=== PATIENT | male | born 1950 | race Caucasian/White ===

== ENCOUNTER 2021-02-24 09:00 | Outpatient (RCR) | payer MEDICARE, OTHER, SELFPAY ==
[2020-12-07 15:37] VITALS: BP 122/64; PULSE 80; RESP 18; TEMP 36; O2SAT 97
[2020-12-07 15:41] VITALS: PULSE 80
--- NOTE | 2020-12-20 07:46 | PCCPR ---
Absent-sinus infection. hopes to see MD today/get script and return Sunday.
--- NOTE | 2020-12-29 09:35 | PCCPR ---
Patient called and stated he won't be attending class today due to a sore knee.
== END 2021-02-24 12:32 | disposition home or self-care (01) ==
LOC: ANHCPREHAB 09:00
PROVIDERS: PCP Family Medicine
DX: Z95.5 Presence of coronary angioplasty implant and graft (principal)
CPT/HCPCS: 93798

== ENCOUNTER 2025-06-25 13:54 | Outpatient (CLI) | payer MEDICARE, OTHER, SELFPAY ==
--- OUTSIDE RECORDS SUMMARY | 2025-06-25 10:15 | XMS_ITS | Encounter Summary ---
Author Organization [facility] Healthcare Address [address] [place] [address] Care Team Providers Care Pest Management Supervisor Name Role Phone Stanton Montoya MD Primary Care Provider Livan Hough MD Unavailable [phone] Robert Jacinto MD Unavailable [phone] Arnav Mckeon MD Unavailable [phone] Reason for Referral * Cardiology (Routine) - Authorized Specialty Diagnoses / Procedures Referred By Contac t Referred To Contact Diagnoses Coronary artery disease involving capitan grande band coronary artery of capitan grande band heart without angina pectoris Procedures Transthoracic Echo (TTE) Complete W Doppler/CF Sreekanth Triana MD [address] [place] [address] Phone: tel: fax: [facility] [address] [place] [address] Referral ID Status Reason Start Date Expiration Date V isits Requested Visits Authorized [id number] Authorized 06/25/2025 07/25/2026 1 1 Reason for Visit * Reason Comments Coronary Artery Disease 1 year f/u Encounter Details Date Type Department Care Team (Latest Contact Info) Description 06/25/2025 10:15 AM CDT Office Visit [facility] Medical Group Cardiology [address] [facility] [place] [address] Sreekanth Triana MD [address] [place] [address] Coronary artery disease involving capitan grande band coronary artery of capitan grande band heart without angina pectoris (Primary Dx); Mixed hyperlipidemia; Primary hypertension; Venous insufficiency Social History Tobacco Use Types Packs/Day Years Used Date Smoking Tobacco: Never Passive Smoke Exposure: Never Smokeless Tobacco: Never Tobacco Cessation:Counseling Given: Not Answered Alcohol Use Standard Drinks/Week Comments Not Currently 0 (1 standard drink = 0.6 oz pur e alcohol) AUDIT-C Answer Date Recorded Q1: How often do you have a drink containing alc ohol? Never 03/12/2025 Average Number of Drinks Not on file 025 Frequency of Binge Drinking Not on file 03/01 Personal Safety Answer Date Recorded Have you ever been in or are you currently in a harmful physical or emotional relationship or is someone making you feel afraid or unsafe? Denies 03/12/2025 Education Answer Date Recorded What is the highest level of school you have completed or the highest degree you have received? 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 [facility] Card[facility] [address], [place] [address] Cardiology Electrophysiology Monse Serrato, MD Jovani Schneider, MD Colby Obando, MD Rylan Carrillo, MD Livan Martinez, MD Billy Acuna, MD Harshil Duran, MD Phill Adamson, MD Zbigniew Callaway, MD Yessenia Gibbs, STORE PROTECTION SPECIALIST Angel Eagle, MD Joseline Choi, STORE PROTECTION SPECIALIST Chester Rico, MD Yamila Pizarro, [facility] Sreekanth Triana, MD Maciej Marinelli, MD Jovani Ocampo, MD Sincere Mariscal, MD Flaquita Portillo, STORE PROTECTION SPECIALIST Livan Gilliland, NURYS Ramirez, NURYS Moreno, STORE PROTECTION SPECIALIST Patient Name: Weston Mor Fernandes Provider: Sreekanth Triana MD : 1950 Date of Service: 06/25/2025 Referring: Lindsay CHIEF COMPLAINT: Coronary Artery Disease (1 year f/u) HISTORY OF PRESENT ILLNESS: 74 y.o. male with a history of rectal carcinoma, hypertension, hyperlipidemia, diabetes mellitus and CAD s/p PCI here for annual follow-up. Cardiac catheterization November 10, 2020 which revealed normal left main, 30% proximal LAD, 99% distal LAD, trivial left circumflex, trivial RCA status post PCI SHARAD x1 LAD. 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 He denies cardiac complaints. He does note some swelling in his feet, particularly the left which gets worse as the day progresses. His primary care physician therefore stopped his valsartan Current Outpatient Medications: aspirin 81 mg enteric coated tablet, Take 1 tablet (81 mg total) by mouth daily, Disp: 90 tablet, Rfl: 3 atorvastatin (LIPITOR) 40 mg tablet, Take 1 tablet (40 mg total) by mouth daily, Disp: 90 tablet, Rfl: 3 FreeStyle [place] Lite kit, , Disp: , Rfl: FreeStyle Lite Strips strip, , Disp: , Rfl: Jardiance 25 mg tablet, , Disp: , Rfl: omeprazole (PriLOSEC) 40 mg capsule, , Disp: , Rfl: semaglutide 0.25 mg or 0.5 mg (2 mg/3 mL) pen injector injection, , Disp: , Rfl: Review of Systems Constitutional: Negative for chills, diaphoresis, fever and malaise/fatigue. Eyes: Negative for visual disturbance. Cardiovascular: Positive for leg swelling. Negative for chest pain, claudication, dyspnea on exertion, orthopnea, palpitations and paroxysmal nocturnal dyspnea. Respiratory: Negative for cough, shortness of breath and wheezing. Endocrine: Negative for cold intolerance and heat intolerance. Hematologic/Lymphatic: Negative for bleeding problem. Does not bruise/bleed easily. Skin: Negative for rash. Musculoskeletal: Negative for muscle weakness. Gastrointestinal: Negative for abdominal pain, change in bowel habit, heartburn, nausea and vomiting. Genitourinary: Negative for bladder incontinence and dysuria. Neurological: Negative for dizziness, focal weakness, headaches and weakness. Psychiatric/Behavioral: Negative for depression and suicidal ideas. PHYSICAL EXAM: BP 118/64 (BP Location: Left arm, Patient Position: Sitting) Pulse 62 Ht 188 cm (6' 2) Wt 110.7 kg (244 lb) SpO2 96% BMI 31.33 kg/m?? Body mass index is 31.33 kg/m??. General: Well appearing and in no distress Respiratory: Clear to ausculation bilaterally; no wheezing/rales/rhonchi; respirations non-labored,good effort and excursion Cardiovascular: RRR,normal PMI, normal S1 and S2. No S3 or S4. No murmers or rubs. Carotid upstrokes brisk bilaterally and without bruits Gastrointestinal: soft, non-tender abdomen, no hepatic congestion, no abnormal aortic pulsation Extremities: warm and well perfused with no cyanosis, clubbing, or edema Pulses: intact and symmetric Musculoskeletal: no obvious joint deformities, normal gait, able to excercise Skin: no obvious rash or bruising Psychiatric: normal mood and affect Neurologic: awake/alert, no focal deficits Procedures ASSESSMENT & PLAN: Diagnoses and all orders for this visit: Coronary artery disease involving capitan grande band coronary artery of capitan grande band heart without angina pectoris (Primary) - Transthoracic Echo (TTE) Complete W Doppler/CF; Future -stable without anginal symptoms. Continue aspirin 81 mg daily. We will repeat an echo next year Mixed hyperlipidemia -well controlled. Continue atorvastatin at current dose Primary hypertension -currently valsartan has been stopped. Advised him to continue to keep a blood pressure log and we can reassess whether we need to start a new agent Venous insufficiency -foot swelling consistent with venous insufficiency. Advised compression stockings. He will continue to monitor Sreekanth Triana MD, [facility] documented in this encounter Plan of Treatment Scheduled Orders Name Type Priority Associated Diagnoses Order Schedule Transthoracic Echo (TTE) Complete W Doppler/CF Echocardiography Routine Coronary artery disease involving capitan grande band coronary artery of capitan grande band heart without angina pectoris Expected: 06/25/2026, Expires: 12/23/2026 documented as of this encounter Visit Diagnoses Diagnosis Coronary artery disease involving capitan grande band coronary artery of capitan grande band heart without angina pectoris- Primary Mixed hyperlipidemia Primary hypertension Unspecified essential hypertension Venous insufficiency Unspecified venous (peripheral) insufficiency documented in this encounter Discontinued Medications Medication Sig Discontinue Reason Start Date End Da te valsartan (DIOVAN) 80 mg tablet Take 1 tablet (80 mg total) by mouth daily Therapy completed 06/25/2025 documented as of this encounter Care Teams Pest Management Supervisor Relationship Specialty Start Date End Date Stanton Montoya MD [address] [place] [address] PCP - General Family Medicine 12/13/18 Livan Hough MD [address] [place] [address] Radiation Oncologist Radiation Oncology 01/10/19 Robert Jacinto MD [address] [place] [address] Surgeon Colon and Rectal Surgery 01/10/19 Arnav Mckeon MD [address] [facility], [address] [place] [address] Medical Oncology 02/13/24 documented as of this encounter
[2025-06-25 14:41] LABS: Hematocrit 41.0 % (42.0-52.0); Hemoglobin 13.7 g/dL (14.0-18.0); Mean Corpuscular HGB Conc 33.4 g/dl (32-36); Mean Corpuscular Hemoglobin 29.9 pg (26-34); Mean Corpuscular Volume 89.5 fl (80-100); Platelet Count Result 174 k/mm3 (150-375); Red Blood Count 4.58 M/mm3 (4.6-6.20); White Blood Count 6.1 K/mm3 (4.5-10.0)
[2025-06-25 14:42] LABS: Add Urine Microscopic? NO; Appearance Urine Clear (Clear); Glucose Urine UA 3+ mg/dL (Negative); Leukocyte Esterase Ur Negative LEU/UL (Negative); Nitrate Urine Negative (Negative); Specific Grav Ur 1.028 (1.001-1.035)
[2025-06-25 14:52] LABS: Cholesterol 138 mg/dL (0-200); HDL Direct 41 mg/dL; Triglycerides 155 mg/dL (<150)
[2025-06-25 15:28] LABS: Thyroid Stimulating Hormone 4.030 uIU/mL (0.465-4.680)
[2025-06-25 15:35] LABS: MALB Creatinine Ratio 5.9 mg/g (0-30)
--- OUTSIDE RECORDS SUMMARY | 2025-06-25 16:40 | XMS_ITS | Encounter Summary ---
Author Organization [facility] Address [address] [place] [address] Care Team Providers Care Welder Apprentice Arc Name Role Phone Stanton Montoya MD Primary Care Provider [phone] Encounter Details Date Type Department Care Team (Latest Contact Info) Description 08/14/2023 [employer] Message Enc [facility] Medical Group Multispecialty Care - [address], [address] [place] [address] Leonides Luevano MD [address] [place], [place] [id number] NOTES from Aug Social History Tobacco Use Types Packs/Day Years Used Date Smoking Tobacco: Never Smokeless Tobacco: Never Alcohol Use Standard Drinks/Week Comments Not Currently 0 (1 standard drink = 0.6 oz pur e alcohol) PHQ-2 Answer Date Recorded Patient Health Questionnaire-2 Score 1 08/17/2023 Sex and Gender Information Value Date Recorded Sex Assigned at Not on file Legal Sex Male 11:39 AM CDT Gender Identity Not on file Sexual Orientation Not on file documented as of this encounter Functional Status * Over the past 2 weeks, how often have you been bothered by any of the following problems? Question Answer Date of Assessment Author Status Little interest or pleasure in doing things Not at all 08/17/2023 9:31 AM Tasha Glaser, MA Active Feeling down, depressed, or hopeless Several days 08/17/2023 9:31 AM Tasha Glaser MA Active Patient Health Questionnaire-2 Score 1 08/17/2023 9:31 AM Tasha Glaser MA Active * If you checked off any problems on this questionnaire so far, Question Answer Date of Assessment Author Status How difficult have these problems made it for you to do your work, take care of things at home, or get along with other people? Somewhat difficult 08/17/2023 9:31 AM Tasha Glaser MA Active documented as of this encounter Plan of Treatment Not on file documented as of this encounter Visit Diagnoses Not on filedocumented in this encounter Care Teams Welder Apprentice Arc Relationship Specialty Start Date End Date Stanton Montoya MD [address] [place] [address] PCP - General FAMILY PRACTICE 03/23/23 documented as of this encounter
--- OUTSIDE RECORDS SUMMARY | 2025-06-25 16:41 | XMS_ITS | Encounter Summary ---
Author Organization [facility] Address [address] [place] [address] Phone Care Team Providers Care Chopper Gun Operator Name Role Phone Stanton Montoya MD Primary Care Provider Livan Hough MD Unavailable [phone] Robert Jacinto MD Unavailable [phone] Mendy Altamirano MD Unavailable Arnav Mckeon MD Unavailable [phone] Encounter Details Date Type Department Care Team (Latest Contact Info) Description 03/14/2023 Orders Only [facility] Scanning, Provider Social History Tobacco Use Types Packs/Day Years Used Date Smoking Tobacco: Never Smokeless Tobacco: Never Alcohol Use Standard Drinks/Week Comments Not Currently 0 (1 standard drink = 0.6 oz pur e alcohol) AUDIT-C Answer Date Recorded Q1: How often do you have a drink containing alc ohol? Never 01/13/2021 Average Number of Drinks Not on file 021 Q3: How often do you have si x or more drinks on one occasion? Never 01/13/2021 Personal Safety Answer Date Recorded Have you ever been in or are you currently in a harmful physical or emotional relationship or is someone making you feel afraid or unsafe? Denies 02/14/2023 Education Answer Date Recorded What is the highest level of school you have completed or the highest degree you have received? 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 Not on file Not on file documented as of this encounter Plan of Treatment Not on file documented as of this encounter Procedures Procedure Name Priority Date/Time Associated Diagnosis Comments SCAN - PATHOLOGY 03/14/2023 documented in this encounter Results * SCAN - PATHOLOGY (03/14/2023) us Provider Scanning Final Result documented in this encounter Visit Diagnoses Not on filedocumented in this encounter Care Teams Chopper Gun Operator Relationship Specialty Start Date End Date Stanton Montoya MD [address] [place] [address] [address] PCP - General Family Medicine 12/13/18 Livan Hough MD [address] [facility] [address] [address] Radiation Oncologist Radiation Oncology 01/10/19 Robert Jacinto MD [address] [facility] [address] [address] Surgeon Colon and Rectal Surgery 01/10/19 Mendy Altamirano MD [address] [facility] [address] [address] Medical Oncologist/Entry Writer Medical Oncology 09/02/19 02/12/24 Arnav Mckeon MD [address] [facility] MEDICAL [facility]Y, [facility] [address] [place] [address] Medical Oncology 02/13/24 documented as of this encounter
--- OUTSIDE RECORDS SUMMARY | 2025-06-25 16:41 | XMS_ITS | Encounter Summary ---
Author Organization [facility] Address [address] [place] [address] Care Team Providers Care Production Coordinator Name Role Phone Stanton Montoya MD Primary Care Provider [phone] Encounter Details Date Type Department Care Team (Late st Contact Info) Description 11/22/2023 Medication Management [facility] Medical Group [facility] [id number] [place] [address] Harshil Abraham, DPLianna [address] [place] [address] Social History Tobacco Use Types Packs/Day Years Used Date Smoking Tobacco: Never Passive Smoke Exposure: Never Smokeless Tobacco: Never Comments:Never Smoked Alcohol Use Standard Drinks/Week Comments Never 0 (1 standard drink = 0.6 oz pur e alcohol) none PHQ-2 Answer Date Recorded Patient Health Questionnaire-2 [...] on filedocumented in this encounter Care Teams Production Coordinator Relationship Specialty Start Date End Date Stanton Montoya MD [address] [facility] [address] [place] [address] PCP - General FAMILY PRACTICE 03/23/23 documented as of this encounter
--- OUTSIDE RECORDS SUMMARY | 2025-06-25 16:41 | XMS_ITS | Encounter Summary ---
Author Organization [facility] Address [address] [place] [address] Phone Care Team Providers Care Southeast Regional Sales Manager Name Role Phone Stanton Montoya MD Primary Care Provider Livan Hough MD Unavailable [phone] Robert Jacinto MD Unavailable [phone] Mendy Altamirano MD Unavailable Arnav Mckeon MD Unavailable [phone] Encounter Details Date Type Department Care Team (Latest Contact Info) Description 06/07/2021 Orders Only [facility] Scanning, Provider [...] more drinks on one occasion? Never 01/13/2021 Education Answer Date Recorded What is the highest level of school you have completed or the highest degree you have received? 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 Not on file Not on file documented as of this encounter Plan of Treatment Not on file documented as of this encounter Procedures Procedure Name Priority Date/Time Associated Diagnosis Comments SCAN - PATHOLOGY 06/07/2021 documented in this encounter Results * SCAN - PATHOLOGY (06/07/2021) Provider Scanning Final Result documented in this encounter Visit Diagnoses Not on filedocumented in this encounter Care Teams Southeast Regional Sales Manager Relationship Specialty Start Date End Date Stanton Montoya MD [address] [place] [address] PCP - General Family Medicine 12/13/18 Livan Hough MD [address] [place] [address] Radiation Oncologist Radiation Oncology 01/10/19 Robert Jacinto MD [address] [place] [address] Surgeon Colon and Rectal Surgery 01/10/19 Mendy Altamirano MD [address] [place] [address] Medical Oncologist/Public Opinion Survey Taker Medical Oncology 09/02/19 02/12/24 Arnav Mckeon MD [address] [facility] MEDICAL ONCOLOGY, [facility] [address] [place] [address] Medical Oncology 02/13/24 documented as of this encounter
--- OUTSIDE RECORDS SUMMARY | 2025-06-25 16:41 | XMS_ITS | Clinical Summary ---
Author Organization [facility] Address [address] [place] [address] Care Team Providers Care Clinical Data Specialist Name Role Phone Stanton Montoya MD Primary Care Provider [phone] Allergies No known active allergies Medications TRULICITY 0.75 MG/0.5ML injection Inject 0.75 mg into the skin once a week. 08/04/2022 Active FREESTYLE LITE test strip 1 strip by Other route. 04/12/2023 Active Lancets (FREESTYLE) lancets 1 each by Other route as needed. 04/12/2023 Active atorvastatin (LIPITOR) 40 MG tablet Take 1 tablet (40 mg total) by mouth nightly at bedtime. Active amitriptyline (ELAVIL) 25 MG tabletIndicatio ns:Drug-induced peripheral neuropathy (HHS/HCC) Take 1 tablet (25 mg total) by mouth nightly at bedtime. 30 tablet 11/22/2023 Active Active Problems Problem Noted Date Diagnosed Date Fatty liver 08/22/2023 Diabetes type 2, controlled (CMS/HCC HHS/HCC) History of rectal cancer 09/15/2021 Coronary artery disease invo lving [place] coronary artery of [place] heart without angina pectoris 06/21/2021 Mixed hyperlipidemia 06/21/2021 Primary hypertension 06/21/2021 Gilbert's syndrome 04/14/2021 Abnormal cardiovascular stress test 11/05/2020 Overview (09/17/2023): Added automatically from request for surgery [id number] Angina pectoris 11/05/2020 Drug-induced polyneuropathy (HHS/HCC) 11/27/2019 Family History Medical History Relation Comments Cancer Father Hypertension Mother Relation Status Comments Father Mother Social History Tobacco Use Types Packs/Day Years Used Date Smoking Tobacco: Never Passive Smoke Exposure: Never Smokeless Tobacco: Never Tobacco Cessation:Counseling Given: No Comments:Never Smoked Alcohol Use Standard Drinks/Week Comments Never 0 (1 standard drink = 0.6 oz pur e alcohol) none PHQ-2 Answer Date Recorded Patient Health Questionnaire-2 Score 1 08/17/2023 Sex and Gender Information Value Date Recorded Sex Assigned at Not on file Legal Sex Male 11:39 AM CDT Gender Identity Not on file Sexual Orientation Not on file Last Filed Vital Signs Vital Sign Reading Time Taken Comments Blood Pressure 139/82 12/05/2023 2:45 PM MACHINE FARMWORKER Pulse 70 12/05/2023 2:45 PM MACHINE FARMWORKER Temperature 36.8 C (98.2 F) 09/17/2023 1:08 PM MACHINE FARMWORKER Respiratory Rate 18 08/17/2023 9:14 AM MACHINE FARMWORKER Oxygen Saturation 96% 12/05/2023 2:45 PM MACHINE FARMWORKER Inhaled Oxygen Concentration - - Weight 108.9 kg (240 lb) 12/05/2023 2:45 PM MACHINE FARMWORKER Height 188 cm (6' 2) 09/17/2023 1:08 PM MACHINE FARMWORKER Body Mass Index 30.81 09/17/2023 1:08 PM MACHINE FARMWORKER Plan of Treatment Health Maintenance Due Date Last Done Comments ASCVD LDL 1950 ASCVD Statin 1950 Colorectal Cancer Screening Colonoscopy (10 Years) 1950 Kidney Health Evaluation 1950 Lipid Panel 1950 Diabetes: Retinopathy Eye Exam 1967 Hepatitis C 1967 DTaP, Tdap and Td Vaccines ( 1 - Tdap) 1968 Pneumococcal Vaccine: 50+ Years (1 of 2 - PCV) 1968 Zoster Vaccines (1 of 2) 1999 Annual Medicare Wellness Visit 2014 Hemoglobin A1C 11/04/2023 05/04/2023 RSV Immunization or 60+ Years (1 - 1-dose 75+ series) 2024 PHQ-2 (Physician [place]) 10/01/2024 08/17/2023 COVID-19 Vaccine (3 - 2024-2 6 season) 2025 10/26/2021, 12/04/2020 Meningococcal B Vaccine Aged Out No l onger eligible based on patient's age to complete this topic Meningococcal Vaccine Aged Out No cristo jhony eligible based on patient's age to complete this topic RSV Immunizations Under 20 Months Aged Out No longer eligible b ased on patient's age to complete this topic Procedures Procedure Name Priority Date/Time Associated Diagnosis Comments HEMOGLOBIN, GLYCOSYLATED Routine 05/04/2023 from Last 3 Months or Most Recently Relevant to Health Maintenance Results * HEMOGLOBIN, GLYCOSYLATED (05/04/2023) HGB A1C 6.8 % 05/04/2023 us Default History Genericprovider LABORATORY Final Result from Last 3 Months or Most Recently Relevant to Health Maintenance Insurance MEDICARE [facility] [employer] Care Teams Clinical Data Specialist Relationship Specialty Start Date End Date Stanton Montoya MD [address] [place] [address] PCP - General FAMILY PRACTICE 03/23/23
--- OUTSIDE RECORDS SUMMARY | 2025-06-25 16:41 | XMS_ITS | Encounter Summary ---
Author Organization [facility] Address [address] [place] [address] Phone Care Team Providers Care Drone Pilot Name Role Phone Stanton Montoya MD Primary Care Provider Yariel Chavez MD Unavailable Livan Hough MD Unavailable Robert Jacinto MD Unavailable Mendy Altamirano MD Unavailable Arnav Mckeon MD Unavailable [phone] Encounter Details Date Type Department Care Team (Latest Contact Info) Description 12/25/2018 Orders Only [facility] Scanning, Provider Social History Tobacco Use Types Packs/Day Years Used Date Smoking Tobacco: Never Sex and Gender Information Value Date Recorded Sex Assigned at Not on file Legal Sex Male 5:24 AM COMBINATION TECHNICIAN Gender Identity Male 02/25/2021 5:21 PM CDT Sexual Orientation Straight 02/25/2021 5: 21 PM CDT documented as of this encounter Plan of Treatment Not on file documented as of this encounter Procedures Procedure Name Priority Date/Time Associated Diagnosis Comments SCAN - PATHOLOGY 12/25/2018 documented in this encounter Results * SCAN - PATHOLOGY (12/25/2018) us Provider Scanning Edited Result - Final documented in this encounter Visit Diagnoses Not on filedocumented in this encounter Care Teams Drone Pilot Relationship Specialty Start Date End Date Stanton Montoya MD [address] [place] [address] PCP - General Family Medicine 12/13/18 Yariel Chavez MD [address] [place] [address] Referring Physician Gastroenterology 12/26/18 01/06/21 Livan Hough MD [address] [place] [address] Radiation Oncologist Radiation Oncology 01/10/19 Robert Jacinto MD [address] [place] [address] Surgeon Colon and Rectal Surgery 01/10/19 Mendy Altamirano MD [address] [place] [address] Medical Oncologist/Hematologis t Medical Oncology 09/02/19 02/12/24 Arnav Mckeon MD [address] [facility], [address] [place] [address] Medical Oncology 02/13/24 documented as of this encounter
--- OUTSIDE RECORDS SUMMARY | 2025-06-25 16:41 | XMS_ITS | Encounter Summary ---
Author Organization [facility] Address [address] [place] [address] Phone Care Team Providers Care Wash Tub Machine Operator Name Role Phone Stanton Montoya MD Primary Care Provider Livan Hough MD Unavailable [phone] Robert Jacinto MD Unavailable Arnav Mckeon MD Unavailable [phone] Encounter Details Date Type Department Care Team (Latest Contact Info) Description 08/20/2024 Orders Only [facility] Scanning, Provider Social History Tobacco Use Types Packs/Day Years Used Date Smoking Tobacco: Never Passive Smoke Exposure: Never Smokeless Tobacco: Never Alcohol Use Standard Drinks/Week Comments Not Currently 0 (1 standard drink = 0.6 oz pur e alcohol) AUDIT-C Answer Date Recorded Q1: How often do you have a drink containing alc ohol? Never 01/04/2024 Average Number of Drinks Not on file 024 Frequency of Binge Drinking Not on file 01/2024 Personal Safety Answer Date Recorded Have you ever been in or are you currently in a harmful physical or emotional relationship or is someone making you feel afraid or unsafe? Denies 01/04/2024 Education Answer Date Recorded What is the highest level of school you have completed or the highest degree you have received? 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 Not on file Not on file documented as of this encounter Plan of Treatment Not on file documented as of this encounter Procedures Procedure Name Priority Date/Time Associated Diagnosis Comments SCAN - PATHOLOGY 08/20/2024 documented in this encounter Results * SCAN - PATHOLOGY (08/20/2024) Provider Scanning Final Result documented in this encounter Visit Diagnoses Not on filedocumented in this encounter Care Teams Wash Tub Machine Operator Relationship Specialty Start Date End Date Stanton Montoya MD [address] [place] [address] PCP - General Family Medicine 12/13/18 Livan Hough MD [address] [place] [address] Radiation Oncologist Radiation Oncology 01/10/19 Robert Jacinto MD [address] [place] [address] Surgeon Colon and Rectal Surgery 01/10/19 Arnav Mckeon MD [address] [facility], [facility] [address] [place] [address] Medical Oncology 02/13/24 documented as of this encounter
--- OUTSIDE RECORDS SUMMARY | 2025-06-25 16:41 | XMS_ITS | Clinical Summary ---
Author Organization [facility] [address] [facility] Address [address] [place] [address] Care Team Providers Care Industry Consultant Name Role Phone Unavailable Primary Care Provider Unavailabl e Active Problems Problem Noted Date Diagnosed Date STEPHANIE (obstructive sleep apnea) 04/29/2024 Social History Tobacco Use Types Packs/Day Years Used Date Smoking Tobacco: Never Assessed Sex and Gender Information Value Date Recorded Sex Assigned at Not on file Legal Sex Male 7:58 AM CDT Gender Identity Not on file Sexual Orientation Not on file Plan of Treatment Health Maintenance Due Date Last Done Comments DIABETES ANNUAL FOOT EXAM 1967 DIABETES ANNUAL RETINAL EXAM 1967 DIABETES MICROALBUMIN ANNUAL SCREEN 1967 LDL CHOLESTEROL ANNUAL 1967 DTAP/TDAP/TD VACCINES (1 - Tdap) 1968 PNEUMOCOCCAL VACCINE 50+ YEA RS (1 of 2 - PCV) 1968 FIT-DNA Q 3 years 1994 FIT/FOBT Q 1 year 1994 ZOSTER VACCINE (1 of 2) 1999 DIABETES HBA1C Q 6 MONTHS 11/04/2023 05/04/2023 RSV VACCINE (60+ or ) (1 - 1-dose 75+ series) 2024 INFLUENZA VACCINE (#1) 2025 COVID-19 Vaccine (2 - 2024-2 6 season) 2025 12/04/2020 Flex Sig/CT Colonography Q 5 years 01/13/2026 01/13/2021, 06/10/2020, 08/07/2019 COLORECTAL SCREENING 01/03/2034 01/04/2024, 01/04/2024, 01/13/2021, Additional history exists Colorectal Cancer Screening 01/03/2034 Insurance MEDICARE PART A [employer]
--- OUTSIDE RECORDS SUMMARY | 2025-06-25 16:41 | XMS_ITS | Clinical Summary ---
Author Organization [facility] [address] Address [address] [place] [address] Care Team Providers Care Sub Acute Care Nurse Name Role Phone Stanton Montoya MD Primary Care Provider Livan Hough MD Unavailable [phone] Robert Jacinto MD Unavailable [phone] Arnav Mckeon MD Unavailable [phone] Allergies No known active allergies Medications aspirin 81 mg enteric coated tablet Take 1 tablet (81 mg total) by mouth daily 90 tablet 3 1 Active FreeStyle Lite Strips strip 2 Active atorvastatin (LIPITOR) 40 mg tablet Take 1 tablet (40 mg total) by mouth daily 90 tablet 3 2 06/18/20 99 Active FreeStyle [place] Lite kit 2 Active Jardiance 25 mg tablet 3 Active semaglutide 0.25 mg or 0.5 mg (2 mg/3 mL) pen injector injection 4 Active omeprazole (PriLOSEC) 40 mg capsule 4 Active valsartan (DIOVAN) 80 mg tablet Take 1 tablet (80 mg total) by mouth daily 06/25/20 25 Discontinu ed(Therapy completed) Active Problems Problem Noted Date Diagnosed Date Venous insufficiency 06/25/2025 History of colonic polyps 02/05/2025 Rectal abnormality 08/20/2024 STEPHANIE (obstructive sleep apnea) 06/24/2024 Fatty liver 08/22/2023 History of rectal cancer 09/15/2021 Coronary artery disease invo lving [place] coronary artery of mentasta heart without angina pectoris 06/21/2021 Mixed hyperlipidemia 06/21/2021 Primary hypertension 06/21/2021 Gilbert's syndrome 04/14/2021 Angina pectoris 11/05/2020 Abnormal cardiovascular stress test 11/05/2020 Overview (11/05/2020): Added automatically from request for surgery [id number] Screening for malignant neoplasm 05/20/2020 Overview (05/20/2020): Added automatically from request for surgery [id number] 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 Rectal cancer 12/31/2018 Cancer Staging:Clinical stage from 12/25/2018:Stage IIIB(cT3, cN1b, cM0) - Signed by Chau Nickerson MD on 01/13/2019 Resolved Problems Problem Noted Date Diagnosed Date Resolved Date Pulmonary nodule 04/14/2021 07/13/2021 Depression 05/26/2020 07/13/2021 Rectal pain 03/12/2019 05/26/2020 Other fatigue 02/26/2019 08/20/2024 Encounters Date Type Department Care Team Description 06/25/2025 10:15 AM CDT Office Visit [facility] Cardiology [facility] [address] [id number] Sreekanth Triana MD Coronary artery disease involving mentasta coronary artery of mentasta heart without angina pectoris (Primary Dx); Mixed hyperlipidemia; Primary hypertension; Venous insufficiency from Last 3 Months Immunizations Immunization Administration Dates Next Due [employer]) SARS-CoV-2 Vaccination 12/04/2020 Surgical History Surgery Date Site/Laterality Comments SINUS SURGERY 10/01/2013 - 09/30/2014 FINGER TENDON REPAIR index finger PORT PLACEMENT CHEST >5 YEARS 02/12/2019 N/A CORONARY ANGIOPLASTY WITH ST ENT PLACEMENT 11/10/2020 PORT REMOVAL 02/14/2023 N/A Medical History Medical History Date Comments Sleep apnea Nonalcoholic hepatosteatosis 2019 Liver cysts 12/2018 Depression Rectal cancer (HCC) 11/2018 s/p chemorad iation Hypertension Hyperlipidemia Diabetes mellitus Heart disease 11/2020 Type 2 diabetes mellitus Family History Medical History Relation Name Comments Cancer Father Weston Fernandes Pneumonia Father Weston Fernandes Prostate cancer Father Weston Fernandes Diabetes Mother Virginie Fernandes Heart disease Mother Virginie Fernandes Heart failure Mother Virginie Fernandes Lung cancer with mets to spine Mother's Sister Breast cancer Niece Genetic Disorder Niece Germline BA RD1 mutation from paternal (unrelated) side of family Relation Name Status Comments Brother (Age 20) Father Weston Fernandes (Age 82) Mother Virginie Fernandes (Age 93) Mother's Sister Niece Sister Alive Social History Tobacco Use Types Packs/Day Years [...] on file Legal Sex 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 Gender Identity Male 02/25/2021 5:21 PM CDT Sexual Orientation Straight 02/25/2021 5: 21 PM CDT 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 Not on file Not on file Obstetrics History Last Filed Vital Signs Vital Sign Reading Time Taken Comments Blood Pressure 118/64 06/25/2025 10:25 AM CDT Pulse 62 06/25/2025 10:25 AM CDT Temperature 36.2 C (97.2 F) 03/12/2025 10:58 AM CDT Respiratory Rate 10 03/12/2025 11:40 AM CDT Oxygen Saturation 96% 06/25/2025 10:25 AM CDT Inhaled Oxygen Concentration - - Weight 110.7 kg (244 lb) 06/25/2025 10:25 AM CDT Height 188 cm (6' 2) 06/25/2025 10:25 AM CDT Body Mass Index 31.33 06/25/2025 10:25 AM CDT Plan of Treatment Health Maintenance Due Date Last Done Comments Depression Screening 1950 Hepatitis C Screening 1950 Prostate Cancer Screening-PSA 1950 DTaP/Tdap/Td Vaccine (1 - Tdap) 1960 Hepatitis B Screening 1967 Pneumococcal vaccine 65+ (1 of 2 - PCV) 1968 Zoster Vaccine (1 of 2) 1999 Well Visit 65+ 2014 Covid-19 Vaccine (2 - Jansse n risk series) 01/01/2021 12/04/2020 Influenza Vaccine (#1) 2025 Fall Risk Assessment 03/12/2026 03/12/2025 Colon Cancer Screening-Colonoscopy 03/12/2035 03/12/2025, 01/04/2024, 03/12/2020 Colon Cancer Screening-CT Colonography Discontinued 03/12/2025, 01/04/2024, 01/13/2021, Additional history exists Colon Cancer Screening-DNA Stool Discontinued 03/12/2025, 01/04/2024, 01/13/2021, Additional history exists Colon Cancer Screening-FIT Discontinued 03/12, 01/04/2024, 01/13/2021, Additional history exists Colon Cancer Screening-Sigmoidoscopy Discontinued 03/12/2025, 01/04/2024, 01/13/2021, Additional history exists Medical Devices Implanted Type Area Scanning Manager Device Identifier Shelf Expiration Date Model / Serial / Lot Ang[employer] [id number] Xcela 8fr 1.6mm 1 Lumen Power Injectable Attach Catheter Fill - [id number] Implanted:Qty: 1 on 02/12/2019 at [facility] Catheter [employer] 08/25/2023 [id number] / / [id number] [employer] Isaura [id number] Synergy 3.5mm 24mm 144cm Radiopaque 1 Access Port Inflation Lumen - S0 - [id number] Implanted:Qty: 1 on 11/10/2020 by Sreekanth Triana MD at [facility] Stent [employer] Isaura 07/22/2022 [id number] / 0 / [id number] Description:LAD Procedures Procedure Name Priority Date/Time Associated Diagnosis Comments COLONOSCOPY 03/12/2025 9:51 AM CDT from Last 3 Months or Most Recently Relevant to Health Maintenance Results * Colonoscopy (03/12/2025 9:51 AM CDT) Anatomical Region Laterality Modality Other Narrative Procedure Note Robert Jacinto MD - 03/12/2025 9:51 AM CDT [facility] Patient Name: Weston Fernandes Procedure Date: 03/12/2025 9:51 AM Date of : 1950 Admit Type: Outpatient Age: 74 Gender: Male Attending MD: Robert Jacinto M.D. Room: [facility] ENDOSCOPY ROOM 02 Note Status: Finalized Procedure: Colonoscopy Indications: Last colonoscopy 1 year ago, Personal history of malignant rectal neoplasm Referring MD: Stanton Montoya M.D. Providers: Robert Jacinto M.D. Medicines: Propofol per Anesthesia Complications: No immediate complications. Estimated blood loss:None. Estimated Blood Loss: Estimated blood loss: none. Procedure: Pre-Anesthesia Assessment: - Sedation was administered by an anesthesia professional. General anesthesia was attained. - Immediately prior to administration ofmedications, the patient was re-assessed for adequacy to receive sedatives. The benefits, risks and alternatives of theprocedure and sedation were discussed and informed consentwas obtained. All questions were answered. Please referto the signed informed consent document in the medical record. The scope was passed under direct vision.The [id number] was introduced through the anusand advanced to the the cecum, identified byappendiceal orifice and ileocecal valve. The colonoscopy was technically difficult and complex due tosignificant looping. Successful completion of the procedure was aided by changing the patient to a supine positionand applying abdominal pressure. The quality of thebowel preparation was excellent. The quality of the bowel preparation was evaluated using the BBPS (BostonBowel Preparation Scale) with scores of: Right Colon = 3, Transverse Colon = 3 and Left Colon = 3 (entiremucosa seen well with no residual staining, smallfragments of stool or opaque liquid). The total BBPS score equals 9. The bowel preparation used was SUPREP via split dose instruction. Findings: The entire examined colon appeared normal. Impression: - The entire examined colon is normal. - No specimens collected. Recommendation: - Repeat colonoscopy in 2 years for surveillance. Attending Participation: I was present and participated during the entire procedure, including non-garzon portions. Electronically signed by Dr.Matthew Ophelia M.D. Robert Jacinto M.D. 03/12/2025 10:55:36 AM . Number of Addenda: 0 Note Initiated On: 03/12/2025 9:51 AM Recognized by the [place] [employer] for promoting quality in endoscopy Robert Jacinto MD ENDOSCOPY PROCEDURES Final R esult from Last 3 Months or Most Recently Relevant to Health Maintenance Insurance MEDICARE FOR LIFE MEDICARE FOR LIFE MEDICARE [facility] Address: [address] [address] [place] [address] FOR LIFE Advance Directives For more information, please contact: [phone] * Full Code (Latest Code Status on File) Date Activated Date Inactivated Comments 03/12/2025 9:24 AM 03/12/2025 4:00 PM * Full Code Date Activated Date Inactivated Comments 01/04/2024 12:51 PM 01/04/2024 7:49 PM * Full Code Date Activated Date Inactivated Comments 02/14/2023 7:20 AM 02/15/2023 5:01 AM * Full Code Date Activated Date Inactivated Comments 01/13/2021 10:25 AM 01/13/2021 3:34 PM * Full Code Date Activated Date Inactivated Comments 06/10/2020 8:55 AM 06/10/2020 1:51 PM Care Teams Sub Acute Care Nurse Relationship Specialty Start Date End Date Stanton Montoya MD [address] [facility] [address] [place] [address] PCP - General Family Medicine 12/13/18 Livan Hough MD [address] [facility] [address] [place] [address] Radiation Oncologist Radiation Oncology 01/10/19 Robert Jacinto MD [address] [address] Surgeon Colon and Rectal Surgery 01/10/19 Arnav Mckeon MD [address] [facility], [facility] [address] [place] [address] Medical Oncology 02/13/24
--- OUTSIDE RECORDS SUMMARY | 2025-06-25 16:41 | XMS_ITS | Encounter Summary ---
Author Organization [facility] Address [address] [place] [address] Phone Care Team Providers Care Material Handler Name Role Phone Stanton Montoya MD Primary Care Provider Livan Hough MD Unavailable [phone] Robert Jacinto MD Unavailable [phone] Mendy Altamirano MD Unavailable Arnav Mckeon MD Unavailable [phone] Encounter Details Date Type Department Care Team (Latest Contact Info) Description 02/23/2023 Orders Only [facility] Scanning, Provider [...] on file 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 Gender Identity Male 02/25/2021 5:21 PM CDT Sexual Orientation Straight 02/25/2021 5: 21 PM CDT 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 Not on file Not on file documented as of this encounter Plan of Treatment Not on file documented as of this encounter Procedures Procedure Name Priority Date/Time Associated Diagnosis Comments SCAN - PATHOLOGY 02/23/2023 documented in this encounter Results * SCAN - PATHOLOGY (02/23/2023) us Provider Scanning Final Result documented in this encounter Visit Diagnoses Not on filedocumented in this encounter Care Teams Material Handler Relationship Specialty Start Date End Date Stanton Montoya MD [address] [place] [address] [address] PCP - General Family Medicine 12/13/18 Livan Hough MD [address] [facility] [address] [address] Radiation Oncologist Radiation Oncology 01/10/19 Robert Jacinto MD [address] [facility] [address] [address] Surgeon Colon and Rectal Surgery 01/10/19 Mendy Altamirano MD [address] [facility] [address] [address] Medical Oncologist/Machine Shop Apprentice Medical Oncology 09/02/19 02/12/24 Arnav Mckeon MD [address] [facility], [facility] [address] [place] [address] Medical Oncology 02/13/24 documented as of this encounter
--- OUTSIDE RECORDS SUMMARY | 2025-06-25 16:41 | XMS_ITS ---
Author Organization [facility] [address] Address [address] [place] [address] Care Team Providers Care Residential Recycle Driver Name Role Phone Stanton Montoya MD Primary Care Provider Livan Hough MD Unavailable [phone] Robert Jacinto MD Unavailable [phone] Arnav Mckeon MD Unavailable [phone] Active Problems Problem Noted Date Diagnosed Date Venous insufficiency 06/25/2025 History of colonic polyps 02/05/2025 Rectal abnormality 08/20/2024 STEPHANIE (obstructive sleep apnea) 06/24/2024 Fatty liver 08/22/2023 History of rectal cancer 09/15/2021 Coronary artery disease invo lving [place] coronary artery of [place] heart without angina pectoris 06/21/2021 Mixed hyperlipidemia 06/21/2021 Primary hypertension 06/21/2021 Gilbert's syndrome 04/14/2021 Angina pectoris 11/05/2020 Abnormal cardiovascular stress test 11/05/2020 Overview (11/05/2020): Added automatically from request for surgery [id number] Screening for malignant neoplasm 05/20/2020 Overview (05/20/2020): Added automatically from request for surgery [id number] 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 Rectal cancer 12/31/2018 Cancer Staging:Clinical stage from 12/25/2018:Stage IIIB(cT3, cN1b, cM0) - Signed by Chau Nickerson MD on 01/13/2019 Current Treatment and Therapy Plans No current plan information found. Past Treatment and Therapy Plans Line Care Plan Name Start Date Discontinue Date Treatment Medications Discontinue Reason Plan Provider IV MAINTENANCE THERAPY PLAN & IV MAINTENANCE THERAPY PLAN 02/12/2019 12/11/2023 No medications scheduled. Automatic discontinuation of dormant plans Mendy Altamirano MD Oncology Chemotherapy Treatment Plan Name Start Date Discontinue Date Treatment Medications Discontinue Reason Plan Provider Cycles [id number]: (Fluorouracil / Leucovorin / Oxaliplatin) 14 Day Cycles - GI 9 05/26/2020 fluorouracil (ADRUCIL)fluorou racil (ADRUCIL) infusion - for home infusion (ADRUCIL)leucovo rinleucovorin IVPB in 250 mLoxaliplatin (ELOXATIN)oxalip latin (ELOXATIN) IVPB Therapy Complete Mendy Altamirano MD 11 of 13 cycles started Radiation Treatments * Course C1 RECTUM 2019 01/20/2019 - 01/24/2019 Treatment Period Energy Fraction Dose Fractions Total Dose Plans Planned RECTUM 01/20/2019 - 01/24/2019 500 5 / 2,500 Reference Points Delivered RECTUM 2500 01/20/2019 - 01/24/2019 2,500 Lifetime Dose Tracking * Chemical Lifetime Dose Automatic Entry Manual Entr y Fluoro Time 7.3 minutes 0.3 minutes 7 minutes Air kerma at the reference p oint (Ka,r) 755 mGy 3 mGy 752 mGy DLP 9,779 mGycm 9,779 mGycm 0 mGycm DAP 6,146.56 Gy-cm2 0 Gy-cm2 6,146.56 Gy- cm2 Resolved Problems Problem Noted Date Diagnosed Date Resolved Date Pulmonary nodule 04/14/2021 07/13/2021 Depression 05/26/2020 07/13/2021 Rectal pain 03/12/2019 05/26/2020 Other fatigue 02/26/2019 08/20/2024
--- OUTSIDE RECORDS SUMMARY | 2025-06-25 16:41 | XMS_ITS | Encounter Summary ---
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 Gender Identity Male 02/25/2021 5:21 PM CDT Sexual Orientation Straight 02/25/2021 5: 21 PM CDT 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 Not on file Not on file documented as of this encounter Plan of Treatment Not on file documented as of this encounter Procedures Procedure Name Priority Date/Time Associated Diagnosis Comments SCAN - PATHOLOGY 03/04/2024 documented in this encounter Results * SCAN - PATHOLOGY (03/04/2024) Provider Scanning Final Result documented in this encounter Visit Diagnoses Not on filedocumented in this encounter Care Teams Film Replacement Orderer Relationship Specialty Start Date End Date Stanton Montoya MD [address] [place] [address] PCP - General Family Medicine 12/13/18 Livan Hough MD [address] [place] [address] Radiation Oncologist Radiation Oncology 01/10/19 Robert Jacinto MD [address] [place] [address] Surgeon Colon and Rectal Surgery 01/10/19 Arnav Mckeon MD [address] [facility] MEDICAL ONCOL[facility], [facility] [address] [place] [address] Medical Oncology 02/13/24 documented as of this encounter
== END 2025-06-25 13:55 | disposition home or self-care (01) ==
PROVIDERS: PCP Family Medicine; Visit Provider Physician Assistant
DX: E11.49 Type 2 diabetes mellitus with other diabetic neurological complication (principal); I11.9 Hypertensive heart disease without heart failure; I25.10 Atherosclerotic heart disease of native coronary artery without angina pectoris; G47.33 Obstructive sleep apnea (adult) (pediatric); Z00.00 Encounter for general adult medical examination without abnormal findings; E11.9 Type 2 diabetes mellitus without complications; R35.1 Nocturia
CPT/HCPCS: 36415; 80061; 81003; 82043; 84443; 85027

== ENCOUNTER 2025-07-01 11:01 | Outpatient (CLI) | payer MEDICARE, OTHER, SELFPAY ==
--- OUTSIDE RECORDS SUMMARY | 2025-07-01 11:51 | XMS_ITS | Encounter Summary ---
Author Organization [facility] Address [address] [place] [address] Care Team Providers Care Clearance Diver Name Role Phone Stanton Montoya MD Primary Care Provider [phone] Encounter Details Date Type Department Care Team (Late st Contact Info) Description 11/22/2023 Medication Management [facility] [id number] [place] [address] Harshil Abraham, DPLianna [address] [place] [phone] Social History Tobacco Use Types Packs/Day [...] on filedocumented in this encounter Care Teams Clearance Diver Relationship Specialty Start Date End Date Stanton Montoya MD [address] [facility] [address] [place] [address] PCP - General FAMILY PRACTICE 03/23/23 documented as of this encounter
--- OUTSIDE RECORDS SUMMARY | 2025-07-01 11:51 | XMS_ITS | Encounter Summary ---
Author Organization [facility] Address [address] [place] [address] Phone Care Team Providers Care Target Aircraft Controller Name Role Phone Stanton Montoya MD Primary Care Provider Yariel Chavez MD Unavailable [phone] Livan Hough MD Unavailable [phone] Robert Jacinto MD Unavailable [phone] Mendy Altamirano MD Unavailable Arnav Mckeon MD Unavailable [phone] Encounter Details Date Type Department Care Team (Latest Contact Info) Description 12/25/2018 Orders Only [facility] Scanning, Provider Social History Tobacco Use Types Packs/Day Years Used Date Smoking Tobacco: Never Sex and Gender Information Value Date Recorded Sex Assigned at Not on file 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 Gender Identity Male 02/25/2021 5:21 PM CDT [...] on filedocumented in this encounter Care Teams Target Aircraft Controller Relationship Specialty Start Date End Date Stanton Montoya MD [address] [place] [address] PCP - General Family Medicine 12/13/18 Yariel Chavez MD [address] [place] [address] Referring Physician Gastroenterology 12/26/18 01/06/21 Livna Hough MD [address] [place] [address] Radiation Oncologist Radiation Oncology 01/10/19 Robert Jacinto MD [address] [place] [address] Surgeon Colon and Rectal Surgery 01/10/19 Mendy Altamirano MD [address] [place] [address] Medical Oncologist/Hematologis t Medical Oncology 09/02/19 02/12/24 Arnav Mckeon MD [address] [facility] MEDICAL ONCOLOG[facility], [address] [place] [address] Medical Oncology 02/13/24 documented as of this encounter
--- OUTSIDE RECORDS SUMMARY | 2025-07-01 11:51 | XMS_ITS | Encounter Summary ---
Author Organization [facility] Address [address] [place] [address] Phone Care Team Providers Care Surgical Elastic Knitter Name Role Phone Stanton Montoya MD Primary Care Provider Livan Hough MD Unavailable [phone] Robert Jacinto MD Unavailable [phone] Mendy Altamirano MD Unavailable Arnav Mckeon MD Unavailable [phone] Encounter Details Date Type Department Care Team [...] on file Legal Sex Male 5:24 AM PATTERN GRADER CUTTER Gender Identity Male 02/25/2021 5:21 PM CDT Sexual Orientation Straight 02/25/2021 5: 21 PM CDT 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 Not on file Not [...] on filedocumented in this encounter Care Teams Surgical Elastic Knitter Relationship Specialty Start Date End Date Stanton Montoya MD [address] [place] [address] PCP - General Family Medicine 12/13/18 Livan Hough MD [address] [place] [address] Radiation Oncologist Radiation Oncology 01/10/19 Robert Jacinto MD [address] [place] [address] Surgeon Colon and Rectal Surgery 01/10/19 Mendy Altamirano MD [address] [place] [address] Medical Oncologist/Generator Assembler Medical Oncology 09/02/19 02/12/24 Arnav Mckeon MD [address] [facility] MEDICAL [facility]OGY, [facility] [address]A, [address] [place] [address] Medical Oncology 02/13/24 documented as of this encounter
--- OUTSIDE RECORDS SUMMARY | 2025-07-01 11:51 | XMS_ITS | Encounter Summary ---
Author Organization 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 Not on file Not [...] on filedocumented in this encounter Care Teams Mandrel Press Hand Relationship Specialty Start Date End Date Stanton Montoya MD [address] [place] [address] [address] PCP - General Family Medicine 12/13/18 Livan Hough MD [address] [facility] [address] [address] Radiation Oncologist Radiation Oncology 01/10/19 Robert Jacinto MD [address] [facility] [address] [address] Surgeon Colon and Rectal Surgery 01/10/19 Mendy Altamirano MD [address] [facility] [address] [address] Medical Oncologist/Bargain Table Clerk Medical Oncology 09/02/19 02/12/24 Arnav Mckeon MD [address] [facility] MEDICAL ONCOLOGY, [facility] [address], [address], [address] [place] [address] Medical Oncology 02/13/24 documented as of this encounter
--- OUTSIDE RECORDS SUMMARY | 2025-07-01 11:51 | XMS_ITS | Clinical Summary ---
Author Organization [employer] [facility] [address] [facility] Address [address] [place] [address] Care Team Providers Care General Milling Superintendent Name Role Phone Unavailable Primary Care Provider [...]
--- OUTSIDE RECORDS SUMMARY | 2025-07-01 11:51 | XMS_ITS | Encounter Summary ---
Author Organization [facility] Address [address] [facility] [place] [address] Phone Care Team Providers Care Project Builder Name Role Phone Stanton Montoya MD Primary Care Provider Livan Hough MD Unavailable [phone] Robert Jacinto MD Unavailable [phone] Arnav Mckeon MD Unavailable [phone] Encounter Details Date Type Department Care Team [...] on file Legal Sex Male 5:24 AM CARDIOLOGY PHYSICIAN ASSISTANT Gender Identity Male 02/25/2021 5:21 PM CDT Sexual Orientation Straight 02/25/2021 5: 21 PM CDT 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 Not on file [...] on filedocumented in this encounter Care Teams Project Builder Relationship Specialty Start Date End Date Stanton Montoya MD [address] [place] [address] PCP - General Family Medicine 12/13/18 Livan Hough MD [address] [place] [address] Radiation Oncologist Radiation Oncology 01/10/19 Robert Jacinto MD [address] [place] [address] Surgeon Colon and Rectal Surgery 01/10/19 Arnav Mckeon MD [address] [facility] MEDICAL ONCOLOGY, [facility] [address]A, [address], [address] [place] [address] Medical Oncology 02/13/24 documented as of this encounter
--- OUTSIDE RECORDS SUMMARY | 2025-07-01 11:51 | XMS_ITS | Clinical Summary ---
Author Organization [facility] [address] Address [address] [place] [address] Care Team Providers Care Ribbon Lapper Tender Name Role Phone Stanton Montoya MD Primary Care Provider Livan Hough MD Unavailable [phone] Robert Jacinto MD Unavailable [phone] Arnav Mckeon MD Unavailable [phone] Allergies No known active allergies Medications aspirin 81 mg enteric coated tablet Take 1 tablet (81 mg total) by mouth daily 90 tablet 3 1 Active FreeStyle Lite Strips strip 2 Active atorvastatin (LIPITOR) 40 mg tablet Take 1 tablet (40 mg total) by mouth daily 90 tablet 3 2 06/18/20 99 Active FreeStyle [place] Lite kit 2 Active Jardiance 25 mg [...] cancer 09/15/2021 Coronary artery disease invo lving [place] coronary artery of [place] heart without angina pectoris 06/21/2021 Mixed hyperlipidemia 06/21/2021 Primary hypertension 06/21/2021 Gilbert's syndrome 04/14/2021 Angina pectoris 11/05/2020 Abnormal cardiovascular stress test 11/05/2020 Overview (11/05/2020): Added automatically from request for surgery [id number] Screening for malignant neoplasm 05/20/2020 Overview (05/20/2020): Added automatically from request for surgery [id number] 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 Rectal cancer 12/31/2018 Cancer Staging:Clinical stage from 12/25/2018:Stage IIIB(cT3, cN1b, cM0) - Signed by Chau Nickerson MD on 01/13/2019 Resolved Problems Problem Noted Date Diagnosed Date Resolved Date Pulmonary nodule 04/14/2021 07/13/2021 Depression 05/26/2020 07/13/2021 Rectal pain 03/12/2019 05/26/2020 Other fatigue 02/26/2019 08/20/2024 Encounters Date Type Department Care Team Description 06/26/2025 Telephone [facility] Medical [facility] Cardiology [address] [place] [address] Sreekanth Triana MD 06/25/2025 10:15 AM CDT Office Visit [facility] Medical [facility] Cardiology [address] [place] [address] Sreekanth Triana MD Coronary artery disease involving [place] coronary artery of [place] heart without angina pectoris (Primary Dx); Mixed hyperlipidemia; Primary hypertension; Venous insufficiency from Last 3 Months Immunizations Immunization Administration Dates Next Due Lifestander (J&J) SARS-CoV-2 Vaccination 12/04/2020 Surgical History Surgery [...] on file Legal Sex Male 5:24 AM SANDBLASTER GLASS Gender Identity Male 02/25/2021 5:21 PM CDT Sexual Orientation Straight 02/25/2021 5: 21 PM CDT 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 Not on file Not [...] history exists Medical Devices Implanted Type Area Customer Contact Sales Associate Device Identifier Shelf Expiration Date Model / Serial / Lot [employer] [id number] Xcela 8fr 1.6mm 1 Lumen Power Injectable Attach Catheter Fill - [id number] Implanted:Qty: 1 on 02/12/2019 at [facility] Catheter [employer] 08/25/2023 [id number] 90 / / [id number] Isaura [id number] Synergy 3.5mm 24mm 144cm Radiopaque 1 Access Port Inflation Lumen - S0 - [id number] Implanted:Qty: 1 on 11/10/2020 by Sreekanth Triana MD at [facility] [employer] 07/22/2022 [id number] / 0 / [id number] Description:LAD Procedures Procedure Name Priority Date/Time Associated Diagnosis Comments COLONOSCOPY 03/12/2025 9:51 AM CDT from Last 3 Months or Most Recently Relevant to Health Maintenance Results * Colonoscopy (03/12/2025 9:51 AM CDT) Anatomical Region Laterality Modality Other Narrative Procedure Note Robert Jacinto MD - 03/12/2025 9:51 AM CDT [facility] Patient Name: Weston Fernandes Procedure Date: 03/12/2025 9:51 AM Date of : 1950 Admit Type: Outpatient Age: 74 Gender: Male Attending MD: Robert Jacinto M.D. Room: [facility] ENDOSCOPY ROOM 02 Note Status: Finalized Procedure: [...] The scope was passed under direct vision.The [id number] was introduced through the anusand advanced to [...] On: 03/12/2025 9:51 AM Recognized by the [place] [employer] for promoting quality in endoscopy us Robert Jacinto MD ENDOSCOPY PROCEDURES Final R esult from Last 3 Months or Most Recently Relevant to Health Maintenance Insurance MEDICARE FOR LIFE MEDICARE FOR LIFE MEDICARE [facility] FOR LIFE Advance Directives For more information, please contact: [phone] * Full Code (Latest Code Status on [...] 8:55 AM 06/10/2020 1:51 PM Care Teams Ribbon Lapper Tender Relationship Specialty Start Date End Date Stanton Montoya MD [address] [place] [address] PCP - General Family Medicine 12/13/18 Livan Hough MD [address] [place] [address] Radiation Oncologist Radiation Oncology 01/10/19 Robert Jacinto MD [address] [place] [address] Surgeon Colon and Rectal Surgery 01/10/19 Arnav Mckeon MD 49[address] [facility] MEDICAL ONCOLOGY, [facility] 7A, 7B, [address] [place] [address] Medical Oncology 02/13/24
--- OUTSIDE RECORDS SUMMARY | 2025-07-01 11:51 | XMS_ITS ---
Author Organization [facility] [address] Address [address] [place] [address] Care Team Providers Care Senior Clinical Data Manager Name Role Phone Stanton Montoya MD Primary Care Provider Livan Hough MD Unavailable [phone] Robert Jacinto MD Unavailable [phone] Arnav Mckeon MD Unavailable [phone] Active Problems Problem Noted Date Diagnosed Date Venous insufficiency 06/25/2025 History of colonic polyps 02/05/2025 Rectal abnormality 08/20/2024 STEPHANIE (obstructive sleep apnea) 06/24/2024 Fatty liver 08/22/2023 History of rectal cancer 09/15/2021 Coronary artery disease invo lving [place] coronary artery of [place] heart without angina pectoris 06/21/2021 Mixed hyperlipidemia 06/21/2021 Primary hypertension 06/21/2021 Gilbert's syndrome 04/14/2021 Angina pectoris 11/05/2020 Abnormal cardiovascular stress test 11/05/2020 Overview (11/05/2020): Added automatically from request for surgery [id number] Screening for malignant neoplasm 05/20/2020 Overview (05/20/2020): Added automatically from request for surgery [id number] 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 Rectal cancer 12/31/2018 Cancer [...]
--- OUTSIDE RECORDS SUMMARY | 2025-07-01 11:51 | XMS_ITS | Encounter Summary ---
Author Organization [facility] Address [address] [place] [address] Care Team Providers Care Clinical Programmer Name Role Phone Stanton Montoya MD Primary Care Provider [phone] Encounter Details Date Type Department Care Team (Latest Contact Info) Description 08/14/2023 [employer] Message Enc [facility] Medical Group Multispecialty Care - [address], [address] [place] [address] Leonides Luevano MD [address] [place], [place] [id number] NOTES from Aug Social History Tobacco Use [...] Not at all 08/17/2023 9:31 AM Tasha Glaser MA Active Feeling down, depressed, or hopeless [...] on filedocumented in this encounter Care Teams Clinical Programmer Relationship Specialty Start Date End Date Stanton Montoya MD [address] [place] [address] PCP - General FAMILY PRACTICE 03/23/23 documented as of this encounter
--- OUTSIDE RECORDS SUMMARY | 2025-07-01 11:51 | XMS_ITS | Encounter Summary ---
Author Organization [facility] Address [address] [place] [address] Phone Care Team Providers Care Director Investor Relations Name Role Phone Stanton Montoya MD Primary Care Provider Livan Hough MD Unavailable [phone] Robert Jacinto MD Unavailable [phone] Mendy Altamirano MD Unavailable Arnav Mckeon MD Unavailable [phone] Encounter Details Date Type Department Care Team [...] on file Legal Sex Male 5:24 AM POT FIRER Gender Identity Male 02/25/2021 5:21 PM CDT Sexual Orientation Straight 02/25/2021 5: 21 PM CDT 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 on file Not [...] on filedocumented in this encounter Care Teams Director Investor Relations Relationship Specialty Start Date End Date Stanton Montoya MD [address] [place] [address] [address] PCP - General Family Medicine 12/13/18 Livan Hough MD [address] [facility] [address] [address] Radiation Oncologist Radiation Oncology 01/10/19 Robert Jacinto MD [address] [facility] [address] [address] Surgeon Colon and Rectal Surgery 01/10/19 Mendy Altamirano MD [address] [facility] [address] [address] Medical Oncologist/Compliance Manager Medical Oncology 09/02/19 02/12/24 rAnav Mckeon MD [address] [facility] MEDICAL ONCOLOGY, [facility] [address]A, [address]B, [address] [place] [address] Medical Oncology 02/13/24 documented as of this encounter
--- OUTSIDE RECORDS SUMMARY | 2025-07-01 11:51 | XMS_ITS | Clinical Summary ---
Author Organization [facility] Address [address] [place] [address] Care Team Providers Care Hydro Generation Supervisor Name Role Phone Stanton Montoya MD Primary Care Provider [phone] Allergies No known active allergies Medications TRULICITY [...] cancer 09/15/2021 Coronary artery disease invo lving [place] coronary artery of [place] heart without angina pectoris 06/21/2021 Mixed hyperlipidemia 06/21/2021 Primary hypertension 06/21/2021 Gilbert's syndrome 04/14/2021 Abnormal cardiovascular stress test 11/05/2020 Overview (09/17/2023): Added automatically from request for surgery [id number] Angina pectoris 11/05/2020 Drug-induced polyneuropathy (HHS/HCC) 11/27/2019 [...] Comments Blood Pressure 139/82 12/05/2023 2:45 PM QUALITY CONTROL INDUSTRIAL ENGINEER Pulse 70 12/05/2023 2:45 PM QUALITY CONTROL INDUSTRIAL ENGINEER Temperature 36.8 C (98.2 F) 09/17/2023 1:08 PM QUALITY CONTROL INDUSTRIAL ENGINEER Respiratory Rate 18 08/17/2023 9:14 AM QUALITY CONTROL INDUSTRIAL ENGINEER Oxygen Saturation 96% 12/05/2023 2:45 PM QUALITY CONTROL INDUSTRIAL ENGINEER Inhaled Oxygen Concentration - - Weight 108.9 kg (240 lb) 12/05/2023 2:45 PM QUALITY CONTROL INDUSTRIAL ENGINEER Height 188 cm (6' 2) 09/17/2023 1:08 PM QUALITY CONTROL INDUSTRIAL ENGINEER Body Mass Index 30.81 09/17/2023 1:08 PM QUALITY CONTROL INDUSTRIAL ENGINEER Plan of Treatment Health Maintenance Due Date [...] - 1-dose 75+ series) 2024 PHQ-2 (Physician Norman) 10/01/2024 08/17/2023 COVID-19 Vaccine (3 - 2024-2 [...] Relevant to Health Maintenance Insurance MEDICARE [facility] [email or web address] Care Teams Hydro Generation Supervisor Relationship Specialty Start Date End Date Stanton Montoya MD [address] [place] [address] PCP - General FAMILY PRACTICE 03/23/23
--- OUTSIDE RECORDS SUMMARY | 2025-07-01 11:51 | XMS_ITS | Encounter Summary ---
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 [address]A, [address], [address] [place] [address] Medical Oncology 02/13/24 documented as of this encounter
[2025-07-01 11:59] LABS: Alanine Aminotransferase 35 U/L (6-50); Albumin Level 4.3 g/dL (3.5-5.1); Alkaline Phosphatase 75 U/L (38-126); Anion Gap 7 mmol/L (4-12); Aspartate Amino Transferase 41 U/L (17-59); Bilirubin,Total 2.0 mg/dL (0.2-1.3); Blood Urea Nitrogen 21 mg/dL (9-20); Calcium 9.1 mg/dL (8.4-10.2); Carbon Dioxide 25 mmol/L (22-30); Chloride 105 mmol/L (98-107); Estimated Glomerular Filt Rate > 60; Glucose 108 mg/dL (65-110); Potassium 4.4 mmol/L (3.4-5.0); Sodium 137 mmol/L (137-145); Total Protein 7.4 g/dL (6.3-8.2)
[2025-07-01 12:11] LABS: Hemoglobin A1C 5.8 % (<5.7)
[2025-07-01 12:35] LABS: Prostate Specific Antigen 1.0 ng/mL (< OR = 4.0)
== END 2025-07-01 11:02 | disposition home or self-care (01) ==
LOC: ANHLAB 11:04
PROVIDERS: PCP Family Medicine; Visit Provider Student in an Organized Health Care Education/Training Program
DX: E11.49 Type 2 diabetes mellitus with other diabetic neurological complication (principal); I11.9 Hypertensive heart disease without heart failure; I25.10 Atherosclerotic heart disease of native coronary artery without angina pectoris; G47.33 Obstructive sleep apnea (adult) (pediatric); Z12.5 Encounter for screening for malignant neoplasm of prostate
CPT/HCPCS: 36415; 80053; 83036; 84153; G0103

== ENCOUNTER 2025-08-21 10:59 | Outpatient (CLI) | payer MEDICARE, OTHER, SELFPAY ==
--- OUTSIDE RECORDS SUMMARY | 2025-08-21 10:52 | XMS_ITS | Clinical Summary ---
Author Organization [facility] Address [address] [place] [address] Care Team Providers Care Senior Reservations Agent Name Role Phone Stanton Montoya MD Primary Care Provider [phone] Allergies No known active allergies Medications TRULICITY [...] Fatty liver 08/22/2023 Diabetes type 2, controlled 08/07/2023 History of rectal cancer 09/15/2021 Coronary artery disease invo lving [place] coronary artery of [place] heart without angina pectoris 06/21/2021 Mixed hyperlipidemia 06/21/2021 Primary hypertension 06/21/2021 Gilbert's syndrome 04/14/2021 Abnormal cardiovascular stress test 11/05/2020 Overview (09/17/2023): Added automatically from request for surgery [id number] Angina pectoris 11/05/2020 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 Family History Medical History Relation Comments [...] Comments Blood Pressure 139/82 12/05/2023 2:45 PM ASSEMBLER BILLIARD TABLE Pulse 70 12/05/2023 2:45 PM ASSEMBLER BILLIARD TABLE Temperature 36.8 C (98.2 F) 09/17/2023 1:08 PM ASSEMBLER BILLIARD TABLE Respiratory Rate 18 08/17/2023 9:14 AM ASSEMBLER BILLIARD TABLE Oxygen Saturation 96% 12/05/2023 2:45 PM ASSEMBLER BILLIARD TABLE Inhaled Oxygen Concentration - - Weight 108.9 kg (240 lb) 12/05/2023 2:45 PM ASSEMBLER BILLIARD TABLE Height 188 cm (6' 2) 09/17/2023 1:08 PM ASSEMBLER BILLIARD TABLE Body Mass Index 30.81 09/17/2023 1:08 PM ASSEMBLER BILLIARD TABLE Plan of Treatment Health Maintenance Due Date Last Done Comments ASCVD LDL 1950 ASCVD Statin 1950 Kidney Health Evaluation 1950 Lipid Panel 1950 Diabetes: Retinopathy Eye Exam 1967 Hepatitis C 1967 DTaP, Tdap and Td Vaccines ( 1 - Tdap) 1968 Hepatitis A Vaccines (1 of 2 - Risk 2-dose series) 1968 Pneumococcal Vaccine: 50+ Years (1 of 2 - PCV) 1968 Zoster Vaccines (1 of 2) 1999 Annual Medicare Wellness Visit 2014 Hemoglobin A1C 11/04/2023 05/04/2023 RSV Immunization or 60+ Years (1 - 1-dose 75+ series) 2024 PHQ-2 (Physician Ramona) 10/01/2024 08/17/2023 COVID-19 Vaccine (3 - 2024-2 6 season) 2025 10/26/2021, 12/04/2020 Influenza Adult (#1) 2025 Meningococcal B Vaccine Aged Out No l [...] Recently Relevant to Health Maintenance Insurance MEDICARE [facility] [employer] Care Teams Senior Reservations Agent Relationship Specialty Start Date End Date Stanton Montoya MD [address] [facility] [address] [place] [address] PCP - General FAMILY PRACTICE 03/23/23
--- OUTSIDE RECORDS SUMMARY | 2025-08-21 10:52 | XMS_ITS | Encounter Summary ---
Author Organization [facility] Address [address] [place] [address] Care Team Providers Care Mortgage Loan Reviewer Name Role Phone Stanton Montoya MD Primary Care Provider [phone] Encounter Details Date Type Department Care Team (Latest Contact Info) Description 08/14/2023 [employer] Message Enc [facility] Medical Group Multispecialty Care - [address], [address] [place] [address] Leonides Luevano MD [address] [place], [place] [phone] NOTES from Aug Social History Tobacco Use [...] on filedocumented in this encounter Care Teams Mortgage Loan Reviewer Relationship Specialty Start Date End Date Stanton Montoya MD [address] [place] [address] PCP - General FAMILY PRACTICE 03/23/23 documented as of this encounter
--- OUTSIDE RECORDS SUMMARY | 2025-08-21 10:52 | XMS_ITS ---
Author Organization [facility] [address] Address [address] [place] [address] Care Team Providers Care Solar Panel Installer Name Role Phone Stanton Montoya MD Primary Care Provider Livan Hough MD Unavailable [phone] Robert Jacinto MD Unavailable [phone] Arnav Mckeon MD Unavailable [phone] Active Problems Problem Noted Date Diagnosed Date Venous insufficiency 06/25/2025 History of colonic polyps 02/05/2025 Rectal abnormality 08/20/2024 STEPHANIE (obstructive sleep apnea) 06/24/2024 Fatty liver 08/22/2023 History of rectal cancer 09/15/2021 Coronary artery disease invo lving [place] coronary artery of [place] heart without angina pectoris 06/21/2021 Mixed hyperlipidemia 06/21/2021 Primary hypertension 06/21/2021 Gilbert's syndrome 04/14/2021 Angina pectoris 11/05/2020 Abnormal cardiovascular stress test 11/05/2020 Overview (11/05/2020): Added automatically from request for surgery [id number] Screening for malignant neoplasm 05/20/2020 Overview (05/20/2020): Added automatically from request for surgery [id number] 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 Rectal cancer 12/31/2018 Cancer [...]
--- OUTSIDE RECORDS SUMMARY | 2025-08-21 10:52 | XMS_ITS | Clinical Summary ---
Author Organization [facility] [address] [facility] Address [address] [place] [address] Care Team Providers Care Lime Trimmer Name Role Phone Unavailable Primary Care Provider [...] RS (1 of 2 - PCV) 1968 ZOSTER VACCINE (1 of 2) 1999 DIABETES HBA1C Q 6 MONTHS 11/04/2023 05/04/2023 RSV VACCINE (60+ or ) (1 - 1-dose 75+ series) 2024 INFLUENZA VACCINE (#1) 2025 COVID-19 Vaccine (2 - 2024-2 6 season) 2025 12/04/2020 Flex Sig/CT Colonography Q 5 years Discontinued 01/13/2021, 06/10/2020, 08/07/2019 COLORECTAL SCREENING Discontinued 01/04/2024, 01/04/2024, 01/13/2021, Additional history exists Colorectal Cancer Screening Discontinued FIT-DNA Q 3 years Discontinued FIT/FOBT Q 1 year Discontinued Insurance MEDICARE PART A [employer]
--- OUTSIDE RECORDS SUMMARY | 2025-08-21 10:52 | XMS_ITS | Clinical Summary ---
Author Organization [facility] [address] Address [address] [place] [address] Care Team Providers Care Hand Inspector Name Role Phone Stanton Montoya MD Primary Care Provider Livan Hough MD Unavailable [phone] Robert Jacinto MD Unavailable [phone] Arnav Mckeon MD Unavailable [phone] Allergies No known active allergies Medications aspirin 81 mg enteric coated tablet Take 1 tablet (81 mg total) by mouth daily 90 tablet 3 03/08/2021 Active FreeStyle Lite Strips strip 06/07/2022 Active atorvastatin (LIPITOR) 40 mg tablet Take 1 tablet (40 mg total) by mouth daily 90 tablet 3 06/19/2022 9 Active FreeStyle [place] Lite kit 07/03/2022 Ac tive Jardiance 25 mg tablet 01/03/2023 Active semaglutide 0.25 mg or 0.5 mg (2 mg/3 mL) pen injector injection 06/07/2024 Active omeprazole (PriLOSEC) 40 mg capsule 05/29/2024 Active Active Problems Problem Noted Date Diagnosed Date Venous insufficiency 06/25/2025 History of colonic polyps 02/05/2025 Rectal abnormality 08/20/2024 STEPHANIE (obstructive sleep apnea) 06/24/2024 Fatty liver 08/22/2023 History of rectal cancer 09/15/2021 Coronary artery disease invo lving [place] coronary artery of [place] heart without angina pectoris 06/21/2021 Mixed hyperlipidemia 06/21/2021 Primary hypertension 06/21/2021 Gilbert's syndrome 04/14/2021 Angina pectoris 11/05/2020 Abnormal cardiovascular stress test 11/05/2020 Overview (11/05/2020): Added automatically from request for surgery [id number] Screening for malignant neoplasm 05/20/2020 Overview (05/20/2020): Added automatically from request for surgery [id number] 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 Rectal cancer 12/31/2018 Cancer Staging:Clinical stage from 12/25/2018:Stage IIIB(cT3, cN1b, cM0) - Signed by Chau Nickerson MD on 01/13/2019 Resolved Problems Problem Noted Date Diagnosed Date Resolved Date Pulmonary nodule 04/14/2021 07/13/2021 Depression 05/26/2020 07/13/2021 Rectal pain 03/12/2019 05/26/2020 Other fatigue 02/26/2019 08/20/2024 Encounters Date Type Department Care Team Description 06/26/2025 Telephone [facility] Medical [facility] Cardiology [address] [place] [phone] Sreekanth Triana MD 06/25/2025 10:15 AM CDT Office Visit [facility] Medical [facility] Cardiology [address] [place] [phone] rSeekanth Triana MD Coronary artery disease involving [place] coronary artery of [place] heart without angina pectoris (Primary Dx); Mixed hyperlipidemia; Primary hypertension; Venous insufficiency from Last 3 Months Immunizations Immunization Administration Dates Next Due [employer] SARS-CoV-2 Vaccination 12/04/2020 Surgical History Surgery [...] on file Legal Sex Male 5:24 AM B2B OUTSIDE SALES REPRESENTATIVE Gender Identity Male 02/25/2021 5:21 PM CDT Sexual Orientation Straight 02/25/2021 5: 21 PM CDT 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 on file Not on file Last Filed Vital Signs [...] Depression Screening 1950 Hepatitis C Screening 1950 DTaP/Tdap/Td Vaccine (1 - Tdap) 1960 Hepatitis B Screening 1967 Pneumococcal vaccine 65+ (1 of 2 - PCV) 1968 Zoster Vaccine (1 of 2) 1999 Well Visit 65+ 2014 Covid-19 Vaccine (2 - Jansse n risk series) 01/01/2021 12/04/2020 Influenza Vaccine (#1) 2025 Fall Risk Assessment 03/12/2026 03/12/2025 Colon Cancer Screening-CT Colonography Discontinued 03/12/2025, 01/04/2024, 01/13/2021, Additional history exists Colon Cancer Screening-Colonoscopy Discontinued 03/12/2025, 01/04/2024, 03/12/2020 Colon Cancer Screening-DNA Stool Discontinued 03/12/2025, 01/04/2024, 01/13/2021, Additional history exists Colon Cancer Screening-FIT Discontinued 03/12, 01/04/2024, 01/13/2021, Additional history exists Colon Cancer Screening-FOBT Discontinued 03/01, 01/04/2024, 01/13/2021, Additional history exists Colon Cancer Screening-Sigmoidoscopy Discontinued 03/12/2025, 01/04/2024, 01/13/2021, Additional history exists Colorectal Cancer Screening Discontinued Medical Devices Implanted Type Area Curb Setter Device Identifier Shelf Expiration Date Model / Serial / Lot [employer] [id number] Xcela 8fr 1.6mm 1 Lumen Power Injectable Attach Catheter Fill - [id number] Implanted:Qty: 1 on 02/12/2019 at [facility] Catheter [employer] 08/25/2023 [id number] / / [id number] [employer] Isaura [id number] Synergy 3.5mm 24mm 144cm Radiopaque 1 Access Port Inflation Lumen - S0 - [id number] Implanted:Qty: 1 on 11/10/2020 by Sreekanth Triana MD at [facility] WO Funding 07/22/2022 [id number] / 0 / [id number] Description:LAD Procedures Procedure Name Priority Date/Time Associated Diagnosis Comments COLONOSCOPY 03/12/2025 9:51 AM CDT from Last 3 Months or Most Recently Relevant to Health Maintenance Results * Colonoscopy (03/12/2025 9:51 AM CDT) Anatomical Region Laterality Modality Other Narrative Procedure Note Robert Jacinto MD - 03/12/2025 9:51 AM CDT [facility] Patient Name: Weston Fernandes Procedure Date: 03/12/2025 9:51 AM Date of : 1950 Admit Type: Outpatient Age: 74 Gender: Male Attending MD: Robert Jacinto M.D. Room: [facility] ENDOSCOPY ROOM 02 Note Status: Finalized Procedure: [...] The scope was passed under direct vision.The [id number] was introduced through the anusand advanced to [...] On: 03/12/2025 9:51 AM Recognized by the [employer] [employer] for promoting quality in endoscopy Robert Jacinto MD ENDOSCOPY PROCEDURES Final R esult from Last 3 Months or Most Recently Relevant to Health Maintenance Insurance MEDICARE FOR LIFE MEDICARE FOR LIFE MEDICARE FOR LIFE Advance Directives For more information, please contact: [phone] * Full Code (Latest Code Status on [...] 8:55 AM 06/10/2020 1:51 PM Care Teams Hand Inspector Relationship Specialty Start Date End Date Stanton Montoya MD [address] [place] [address] PCP - General Family Medicine 12/13/18 Livan Hough MD [address] [place] [address] Radiation Oncologist Radiation Oncology 01/10/19 Robert Jacinto MD [address] [place] [address] Surgeon Colon and Rectal Surgery 01/10/19 Arnav Mckeon MD [address] [place] [address] Medical Oncology 02/13/24
--- OUTSIDE RECORDS SUMMARY | 2025-08-21 10:52 | XMS_ITS | Encounter Summary ---
Author Organization [facility] Address [address] [facility] [address] Phone Care Team Providers Care Manufacturing Leader Name Role Phone Stanton Montoya MD Primary Care Provider Livan Hough MD Unavailable [phone] Robert Jacinto MD Unavailable [phone] Arnav Mckeon MD Unavailable [phone] Encounter Details Date Type Department Care Team [...] on file Legal Sex Male 5:24 AM HEAD OF MARKETING ADOMETRY Gender Identity Male 02/25/2021 5:21 PM CDT Sexual Orientation Straight 02/25/2021 5: 21 PM CDT 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
--- OUTSIDE RECORDS SUMMARY | 2025-08-21 10:52 | XMS_ITS | Encounter Summary ---
Author Organization [facility] Address [address] [place] [address] Phone Care Team Providers Care Toe Stapler Name Role Phone Stanton Montoya MD Primary Care Provider Yariel Chavez MD Unavailable [phone] Livan Hough MD Unavailable [phone] Robert Jacinto MD Unavailable Mendy Altamirano MD Unavailable Arnav Mckeon MD Unavailable [phone] Encounter Details Date Type Department Care Team (Latest Contact Info) Description 12/25/2018 Orders Only [facility] Scanning, Provider Social History Tobacco Use Types Packs/Day Years Used Date Smoking Tobacco: Never Sex and Gender Information Value Date Recorded Sex Assigned at Not on file Legal Sex Male 5:24 AM KIER HAND Gender Identity Male 02/25/2021 5:21 PM CDT [...] on filedocumented in this encounter Care Teams Toe Stapler Relationship Specialty Start Date End Date Stanton Montoya MD [address] [place] [address] PCP - General Family Medicine 12/13/18 Yariel Chavez MD [address] [place] [address] Referring Physician Gastroenterology 12/26/18 01/06/21 Livan Hough MD [address] [place] [address] Radiation Oncologist Radiation Oncology 01/10/19 Robert Jacinto MD [address] [place] [address] Surgeon Colon and Rectal Surgery 01/10/19 Mendy Altamirano MD [address] [place] [address] Medical Oncologist/Hematologis t Medical Oncology 09/02/19 02/12/24 Arnav Mckeon MD [address] [place] [address] Medical Oncology 02/13/24 documented as of this encounter
--- OUTSIDE RECORDS SUMMARY | 2025-08-21 10:52 | XMS_ITS | Encounter Summary ---
Author Organization [facility] Address [address] [facility] [place] [address] Phone Care Team Providers Care Angle Dozer Operator Name Role Phone Stanton Montoya MD Primary Care Provider Livan Hough MD Unavailable [phone] Robert Jacinto MD Unavailable Mendy Altamirano MD Unavailable Arnav Mckeon MD Unavailable [phone] Encounter Details Date Type Department Care Team [...] on file Legal Sex Male 5:24 AM FLATBED OWNER OPERATOR Gender Identity Male 02/25/2021 5:21 PM CDT Sexual Orientation Straight 02/25/2021 5: 21 PM CDT 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 on file Not [...] on filedocumented in this encounter Care Teams Angle Dozer Operator Relationship Specialty Start Date End Date Stanton Montoya MD [address] [facility] [address] [address] PCP - General Family Medicine 12/13/18 Livan Hough MD [address] [address] Radiation Oncologist Radiation Oncology 01/10/19 Robert Jacinto MD [address] [facility] [address] [address] Surgeon Colon and Rectal Surgery 01/10/19 Mendy Altamirano MD [address] [facility] [address] [address] Medical Oncologist/Tax Advisor Medical Oncology 09/02/19 02/12/24 Arnav Mckeon MD [address] [address] Medical Oncology 02/13/24 documented as of this encounter
--- OUTSIDE RECORDS SUMMARY | 2025-08-21 10:52 | XMS_ITS | Encounter Summary ---
Author Organization [facility] Address [address] [place] [address] Care Team Providers Care Paper Rewinder Operator Name Role Phone Stanton Montoya MD Primary Care Provider [phone] Encounter Details Date Type Department Care Team (Late st Contact Info) Description 11/22/2023 Medication Management [facility] Medical Group Foot [facility] Ankle Specialists [facility] [id number] [place] [address] Harshil Abraham, DPLianna [address] [place] [phone] Social History Tobacco Use Types Packs/Day [...] on filedocumented in this encounter Care Teams Paper Rewinder Operator Relationship Specialty Start Date End Date Stanton Montoya MD [address] [facility] [address] [place] [address] PCP - General FAMILY PRACTICE 03/23/23 documented as of this encounter
--- OUTSIDE RECORDS SUMMARY | 2025-08-21 10:52 | XMS_ITS | Encounter Summary ---
Author Organization [facility] Address [address] [place] [address] Phone Care Team Providers Care Submarine Worker Name Role Phone Stantno Montoya MD Primary Care Provider Livan Hough MD Unavailable [phone] Robert Jacinto MD Unavailable [phone] Mendy Altamirano MD Unavailable Arnav Mckeon MD Unavailable [phone] Encounter Details Date Type Department Care Team [...] on file Legal Sex Male 5:24 AM SERVICES MANAGER Gender Identity Male 02/25/2021 5:21 PM CDT Sexual Orientation Straight 02/25/2021 5: 21 PM CDT 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 on file [...] on filedocumented in this encounter Care Teams Submarine Worker Relationship Specialty Start Date End Date Stanton Montoya MD [address] [place] [address] PCP - General Family Medicine 12/13/18 Livan Hough MD [address] [place] [address] Radiation Oncologist Radiation Oncology 01/10/19 Robert Jacinto MD [address] [place] [address] Surgeon Colon and Rectal Surgery 01/10/19 Mendy Altamirano MD [address] [place] [address] Medical Oncologist/Non Destructive Testing Supervisor Medical Oncology 09/02/19 02/12/24 Arnav Mckeon MD [address] [place] [address] Medical Oncology 02/13/24 documented as of this encounter
--- OUTSIDE RECORDS SUMMARY | 2025-08-21 10:52 | XMS_ITS | Encounter Summary ---
Author Organization [facility] Address [address] [facility] [place] [address] Phone Care Team Providers Care Invoice Checker Name Role Phone Stanton Montoya MD Primary Care Provider Livan Hough MD Unavailable [phone] Robert Jacinto MD Unavailable [phone] Arnav Mckeon MD Unavailable [phone] Encounter Details Date Type Department Care Team [...] on file Legal Sex Male 5:24 AM [employer] Gender Identity Male 02/25/2021 5:21 PM CDT Sexual Orientation Straight 02/25/2021 5: 21 PM CDT 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 on file Not on file documented as of this encounter Functional Status documented as of this encounter Plan of Treatment Not on file documented as of this encounter Procedures Procedure Name Priority Date/Time Associated Diagnosis Comments SCAN - PATHOLOGY 08/20/2024 documented in this encounter Results * SCAN - PATHOLOGY (08/20/2024) us Provider Scanning Final Result documented in this encounter Visit Diagnoses Not on filedocumented in this encounter Care Teams Invoice Checker Relationship Specialty Start Date End Date Stanton Montoya MD [address] [address] PCP - General Family Medicine 12/13/18 Livan Hough MD [address] [address] Radiation Oncologist Radiation Oncology 01/10/19 Robert Jacinto MD [address] [address] Surgeon Colon and Rectal Surgery 01/10/19 Anrav Mckeon MD [address] [address] Medical Oncology 02/13/24 documented as of this encounter
--- OUTSIDE RECORDS SUMMARY | 2025-08-21 10:52 | XMS_ITS | Encounter Summary ---
Author Organization [facility] Address [address] [place] [address] Phone Care Team Providers Care Pad Making Machine Operator Name Role Phone Stanton Montoya MD Primary Care Provider Livan Hough MD Unavailable [phone] Robert Jacinto MD Unavailable [phone] Mendy Altamirano MD Unavailable Arnav Mckeon MD Unavailable [phone] Encounter Details Date Type Department Care Team [...] on file Legal Sex Male 5:24 AM ASSISTANT FRONT OFFICE MANAGER Gender Identity Male 02/25/2021 5:21 PM CDT Sexual Orientation Straight 02/25/2021 5: 21 PM CDT 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 on file Not [...] on filedocumented in this encounter Care Teams Pad Making Machine Operator Relationship Specialty Start Date End Date Stanton Montoya MD [address] [facility] [address] [address] PCP - General Family Medicine 12/13/18 Livan Hough MD [address] [address] Radiation Oncologist Radiation Oncology 01/10/19 Robert Jacinto MD [address] [facility] [address] [address] Surgeon Colon and Rectal Surgery 01/10/19 Mendy Altamirano MD [address] [facility] [address] [address] Medical Oncologist/Water Taxi Operator Medical Oncology 09/02/19 02/12/24 Arnav Mckeon MD [address] [address] Medical Oncology 02/13/24 documented as of this encounter
[2025-08-21 11:54] LABS: Add Urine Microscopic? NO; Appearance Urine Clear (Clear); Glucose Urine UA 3+ mg/dL (Negative); Leukocyte Esterase Ur Negative LEU/UL (Negative); Nitrate Urine Negative (Negative); Specific Grav Ur 1.022 (1.001-1.035)
[2025-08-21 12:07] LABS: Anion Gap 10 mmol/L (4-12); Blood Urea Nitrogen 21 mg/dL (9-20); Calcium 9.3 mg/dL (8.4-10.2); Carbon Dioxide 23 mmol/L (22-30); Chloride 105 mmol/L (98-107); Estimated Glomerular Filt Rate > 60; Glucose 128 mg/dL (65-110); Potassium 4.4 mmol/L (3.4-5.0); Sodium 138 mmol/L (137-145)
== END 2025-08-21 11:00 | disposition home or self-care (01) ==
PROVIDERS: PCP Family Medicine; Visit Provider Physician Assistant Medical
DX: R10.A1 Flank pain, right side (principal); R31.1 Benign essential microscopic hematuria
CPT/HCPCS: 36415; 80048; 81003

== ENCOUNTER 2025-08-26 13:10 | Outpatient (CLI) | payer MEDICARE, OTHER, SELFPAY ==
--- NOTE | ~2025-08-26 | XR_ITS ---
XR lumbar spine 2-3V Indication: R10.A1 - Flank pain, right side x 1 month Comparison: None Findings: The vertebral heights are intact. No fracture or subluxation. The disc heights are intact. Soft tissues unremarkable Impression: No acute abnormality. Reviewed, dictated and finalized at location P. RATORY COORDINATOR Impression: No acute abnormality.
--- NOTE | ~2025-08-26 | XR_ITS ---
EXAMINATION: XR abdomen/kub 1V, 08/26/2025 13:23 SOLUTION DESIGN ENGINEER HISTORY: R10.A1 - Flank pain, right side COMPARISON: No comparisons available. Technique: 3 view. Findings: Moderate fecal content, no dilated bowel loops No free air. No abnormal calcifications No acute osseous abnormality. Impression: 1. No acute abnormality. Reviewed, dictated and finalized at location P. TION DESIGN ENGINEER Impression: 1. No acute abnormality.
--- OUTSIDE RECORDS SUMMARY | 2025-08-26 13:19 | XMS_ITS | Clinical Summary ---
Author Organization [facility] Address [address] [place] [address] Care Team Providers Care Welding Machine Setter Name Role Phone Stanton Montoya MD Primary Care Provider [phone] Allergies No known active allergies Medications TRULICITY [...] (09/17/2023): Added automatically from request for surgery [id number] Angina pectoris 11/05/2020 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 Family [...] Comments Blood Pressure 139/82 12/05/2023 2:45 PM HEAD OF VISUAL MERCHANDISING Pulse 70 12/05/2023 2:45 PM HEAD OF VISUAL MERCHANDISING Temperature 36.8 C (98.2 F) 09/17/2023 1:08 PM HEAD OF VISUAL MERCHANDISING Respiratory Rate 18 08/17/2023 9:14 AM HEAD OF VISUAL MERCHANDISING Oxygen Saturation 96% 12/05/2023 2:45 PM HEAD OF VISUAL MERCHANDISING Inhaled Oxygen Concentration - - Weight 108.9 kg (240 lb) 12/05/2023 2:45 PM HEAD OF VISUAL MERCHANDISING Height 188 cm (6' 2) 09/17/2023 1:08 PM HEAD OF VISUAL MERCHANDISING Body Mass Index 30.81 09/17/2023 1:08 PM HEAD OF VISUAL MERCHANDISING Plan of Treatment Health Maintenance Due Date [...] - 1-dose 75+ series) 2024 PHQ-2 (Physician [place]) 10/01/2024 08/17/2023 COVID-19 Vaccine (3 - 2024-2 [...] Recently Relevant to Health Maintenance Insurance MEDICARE [facility] [email or web address] Care Teams Welding Machine Setter Relationship Specialty Start Date End Date Stanton Montoya MD [address] [facility] [address] [place] [address] PCP - General FAMILY PRACTICE 03/23/23
--- OUTSIDE RECORDS SUMMARY | 2025-08-26 13:19 | XMS_ITS | Encounter Summary ---
Author Organization [facility] Address [address] [place] [address] Care Team Providers Care Fine Artist Name Role Phone Stanton Montoya MD Primary Care Provider Encounter Details Date Type Department Care Team (Late st Contact Info) Description 11/22/2023 Medication Management [facility] Medical Group Foot [facility] Ankle Specialists [facility] [address] [place] [address] Harshil Abraham, DPLianna [address] [place] [phone] Social History Tobacco Use Types Packs/Day [...] on filedocumented in this encounter Care Teams Fine Artist Relationship Specialty Start Date End Date Stanton Montoya MD [address] [facility] [address] [place] [address] PCP - General FAMILY PRACTICE 03/23/23 documented as of this encounter
--- OUTSIDE RECORDS SUMMARY | 2025-08-26 13:19 | XMS_ITS | Encounter Summary ---
Author Organization [facility] Address [address] [place] [address] Phone Care Team Providers Care Button Sewing Machine Operator Name Role Phone Stanton Montoya MD Primary Care Provider Yariel Chavez MD Unavailable [phone] Livan Hough MD Unavailable [phone] Robert Jacinto MD Unavailable [phone] Mendy Altamirano MD Unavailable Arnav Mckeon MD Unavailable [phone] Encounter Details Date Type Department Care Team (Latest Contact Info) Description 12/25/2018 Orders Only [facility] Scanning, Provider Social History Tobacco Use Types Packs/Day Years Used Date Smoking Tobacco: Never Sex and Gender Information Value Date Recorded Sex Assigned at Not on file 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 Gender Identity Male 02/25/2021 5:21 PM CDT [...] on filedocumented in this encounter Care Teams Button Sewing Machine Operator Relationship Specialty Start Date End Date Stanton Montoya MD [address] [place] [address] PCP - General Family Medicine 12/13/18 Yariel Chavez MD [address] [place] [address] Referring Physician Gastroenterology 12/26/18 01/06/21 Livan Hough MD [address] [place] [address] Radiation Oncologist Radiation Oncology 01/10/19 Robert Jacinto MD [address] [place] [address] Surgeon Colon and Rectal Surgery 01/10/19 Mendy Altamirano MD [address] [place] [address] Medical Oncologist/Hematologis t Medical Oncology 09/02/19 02/12/24 Arnav Mckeon MD [address] [place] [address] Medical Oncology 02/13/24 documented as of this encounter
--- OUTSIDE RECORDS SUMMARY | 2025-08-26 13:19 | XMS_ITS | Encounter Summary ---
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 Gender Identity Male 02/25/2021 5:21 PM CDT Sexual Orientation Straight 02/25/2021 5: 21 PM CDT 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 Not [...] on filedocumented in this encounter Care Teams Interpersonal Communications Professor Relationship Specialty Start Date End Date Stanton Montoya MD [address] [place] [address] PCP - General Family Medicine 12/13/18 Livan Hough MD [address] [place] [address] Radiation Oncologist Radiation Oncology 01/10/19 Robert Jacinto MD [address] [place] [address] Surgeon Colon and Rectal Surgery 01/10/19 Mendy Altamirano MD [address] [place] [address] Medical Oncologist/Railroad Surveyor Medical Oncology 09/02/19 02/12/24 Arnav Mckeon MD [address] [place] [address] Medical Oncology 02/13/24 documented as of this encounter
--- OUTSIDE RECORDS SUMMARY | 2025-08-26 13:19 | XMS_ITS | Encounter Summary ---
Author Organization [facility] Address [address] [place] [address] Care Team Providers Care Rolled Oats Mill Operator Name Role Phone Stanton Montoya MD Primary Care Provider [phone] Encounter Details Date Type Department Care Team (Latest Contact Info) Description 08/14/2023 [employer] Message Enc [facility] Multispecialty Care - [address], [address] [place] [address] Leonides Luevano MD [address] [place], [place] [phone] NOTES from Aug Social History Tobacco Use [...] on filedocumented in this encounter Care Teams Rolled Oats Mill Operator Relationship Specialty Start Date End Date Stanton Montoya MD [address] [place] [address] PCP - General FAMILY PRACTICE 03/23/23 documented as of this encounter
--- OUTSIDE RECORDS SUMMARY | 2025-08-26 13:20 | XMS_ITS | Clinical Summary ---
Author Organization [facility] [address] [facility] Address [address] [place] [address] Care Team Providers Care Studio Couch Frame Builder Name Role Phone Unavailable Primary Care Provider [...]
--- OUTSIDE RECORDS SUMMARY | 2025-08-26 13:20 | XMS_ITS | Encounter Summary ---
Author Organization [facility] Address [address] [facility] [place] [address] Phone Care Team Providers Care Architecture Drafter Name Role Phone Stanton Montoya MD Primary Care Provider Livan Hough MD Unavailable [phone] Robert Jacinto MD Unavailable [phone] Arnav Mckeon MD Unavailable [phone] Encounter Details Date Type Department Care Team [...] on file Legal Sex Male 5:24 AM REEL FILM INSPECTOR Gender Identity Male 02/25/2021 5:21 PM CDT Sexual Orientation Straight 02/25/2021 5: 21 PM CDT 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
--- OUTSIDE RECORDS SUMMARY | 2025-08-26 13:20 | XMS_ITS | Encounter Summary ---
Author Organization [facility] Address [address] [place] [address] Phone Care Team Providers Care Facilities Operations Technician Name Role Phone Stanton Montoya MD Primary Care Provider Livan Hough MD Unavailable [phone] Robert Jacinto MD Unavailable [phone] Arnav Mckeon MD Unavailable [phone] Encounter Details Date Type Department Care Team [...] on file Legal Sex Male 5:24 AM REHABILITATION SPECIALIST Gender Identity Male 02/25/2021 5:21 PM CDT Sexual Orientation Straight 02/25/2021 5: 21 PM CDT 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
--- OUTSIDE RECORDS SUMMARY | 2025-08-26 13:20 | XMS_ITS | Encounter Summary ---
Author Organization [facility] Address [address] [place] [address] Phone Care Team Providers Care Commercial Title Examiner Name Role Phone Stanton Montoya MD Primary Care Provider Livan Hough MD Unavailable Robert Jacinto MD Unavailable [phone] Mendy Altamirano MD Unavailable Arnav Mckeon MD Unavailable [phone] Encounter Details Date Type Department Care Team [...] on file Legal Sex Male 5:24 AM PARTS PERSON Gender Identity Male 02/25/2021 5:21 PM CDT Sexual Orientation Straight 02/25/2021 5: 21 PM CDT 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 on file Not [...] on filedocumented in this encounter Care Teams Commercial Title Examiner Relationship Specialty Start Date End Date Stanton Montoya MD [address] [facility] [address] [address] PCP - General Family Medicine 12/13/18 Livan Hough MD [address] [address] Radiation Oncologist Radiation Oncology 01/10/19 Robert Jacinto MD [address] [facility] [address] [address] Surgeon Colon and Rectal Surgery 01/10/19 Mendy Altamirano MD [address] [facility] [address] [address] Medical Oncologist/Die Trimmer Medical Oncology 09/02/19 02/12/24 Arnav Mckeon MD [address] [address] Medical Oncology 02/13/24 documented as of this encounter
--- OUTSIDE RECORDS SUMMARY | 2025-08-26 13:20 | XMS_ITS ---
Author Organization [facility] [address] Address [address] [place] [address] Care Team Providers Care Hawk Missile Air Defense Artillery Name Role Phone Stanton Montoya MD Primary Care Provider Livan Hough MD Unavailable [phone] Robert Jacinto MD Unavailable [phone] Arnav Mckeon MD Unavailable [phone] Active Problems Problem Noted Date Diagnosed Date Venous insufficiency 06/25/2025 History of colonic polyps 02/05/2025 Rectal abnormality 08/20/2024 STEPHANIE (obstructive sleep apnea) 06/24/2024 Fatty liver 08/22/2023 History of rectal cancer 09/15/2021 Coronary artery disease invo lving elem coronary 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
--- OUTSIDE RECORDS SUMMARY | 2025-08-26 13:20 | XMS_ITS | Encounter Summary ---
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 Gender Identity Male 02/25/2021 5:21 PM CDT Sexual Orientation Straight 02/25/2021 5: 21 PM CDT 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 on file Not [...] on filedocumented in this encounter Care Teams Medical Parasitologist Relationship Specialty Start Date End Date Stanton Montoya MD [address] [facility] [address] [address] PCP - General Family Medicine 12/13/18 Livan Hough MD [address] [address] Radiation Oncologist Radiation Oncology 01/10/19 Robert Jacinto MD [address] [facility] [address] [address] Surgeon Colon and Rectal Surgery 01/10/19 Mendy Altamirano MD [address] [facility] [address] [address] Medical Oncologist/Debt And Budget Counselor Medical Oncology 09/02/19 02/12/24 Arnav Mckeon MD [address] [address] Medical Oncology 02/13/24 documented as of this encounter
--- OUTSIDE RECORDS SUMMARY | 2025-08-26 13:20 | XMS_ITS | Clinical Summary ---
Author Organization [facility] [address] Address [address] [place] [address] Care Team Providers Care Program Director Scouting Name Role Phone Stanton Montoya MD Primary Care Provider Livan Hough MD Unavailable [phone] Robert Jacinto MD Unavailable Arnav Mckeon MD Unavailable [phone] Allergies No known active allergies Medications aspirin 81 mg enteric coated tablet Take 1 tablet (81 mg total) by mouth daily 90 tablet 3 03/08/2021 Active FreeStyle Lite Strips strip 06/07/2022 Active atorvastatin (LIPITOR) 40 mg tablet Take 1 tablet (40 mg total) by mouth daily 90 tablet 3 06/19/2022 9 Active FreeStyle [place] Lite kit 07/03/2022 Ac tive Jardiance 25 [...] cancer 09/15/2021 Coronary artery disease invo lving robinson coronary artery of robinson heart without angina pectoris 06/21/2021 Mixed hyperlipidemia 06/21/2021 Primary hypertension 06/21/2021 Gilbert's syndrome 04/14/2021 Angina pectoris 11/05/2020 Abnormal cardiovascular stress test 11/05/2020 Overview (11/05/2020): Added automatically from request for surgery [id number] Screening for malignant neoplasm 05/20/2020 Overview (05/20/2020): Added automatically from request for surgery [id number] 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 Rectal cancer 12/31/2018 Cancer Staging:Clinical stage from 12/25/2018:Stage IIIB(cT3, cN1b, cM0) - Signed by Chau Nickerson MD on 01/13/2019 Resolved Problems Problem Noted Date Diagnosed Date Resolved Date Pulmonary nodule 04/14/2021 07/13/2021 Depression 05/26/2020 07/13/2021 Rectal pain 03/12/2019 05/26/2020 Other fatigue 02/26/2019 08/20/2024 Encounters Date Type Department Care Team Description 06/26/2025 Telephone [facility] [address] [place] [address] Sreekanth Triana MD 06/25/2025 10:15 AM CDT Office Visit [facility] [address] [place] [address] Sreekanth Triana MD Coronary artery disease involving robinson coronary artery of robinson heart without angina pectoris (Primary Dx); Mixed hyperlipidemia; Primary hypertension; Venous insufficiency from Last 3 Months Immunizations Immunization Administration Dates Next Due [employer] (J&J) SARS-CoV-2 Vaccination 12/04/2020 Surgical History Surgery [...] on file 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 Gender Identity Male 02/25/2021 5:21 PM CDT Sexual Orientation Straight 02/25/2021 5: 21 PM CDT 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 Not on file Not [...] Screening Discontinued Medical Devices Implanted Type Area Chief Innovation Officer Device Identifier Shelf Expiration Date Model / Serial / Lot Ang[employer] [id number] Xcela 8fr 1.6mm 1 Lumen Power Injectable Attach Catheter Fill - [id number] Implanted:Qty: 1 on 02/12/2019 at [facility] Catheter [employer] 08/25/2023 [id number] / / [id number] [employer] Isaura [id number] Synergy 3.5mm 24mm 144cm Radiopaque 1 Access Port Inflation Lumen - S0 - [id number] Implanted:Qty: 1 on 11/10/2020 by Sreekanth Triana MD at [facility] [employer] 07/22/2022 [id number] / 0 / [id number] Description:LAD Procedures Procedure Name Priority Date/Time Associated Diagnosis Comments COLONOSCOPY 03/12/2025 9:51 AM CDT from Last 3 Months or Most Recently Relevant to Health Maintenance Results * Colonoscopy (03/12/2025 9:51 AM CDT) Anatomical Region Laterality Modality Other Narrative Procedure Note Robert Jacinto MD - 03/12/2025 9:51 AM CDT [facility] Patient Name: Weston Fernandes Procedure Date: 03/12/2025 9:51 AM Date of : 1950 Admit Type: Outpatient Age: 74 Gender: Male Attending MD: Robert Jacinto M.D. Room: [facility] ENDOSCOPY ROOM 02 Note Status: Finalized Procedure: [...] The scope was passed under direct vision.The [id number] was introduced through the anusand advanced to [...] On: 03/12/2025 9:51 AM Recognized by the [place] [employer] for promoting quality in endoscopy Robert Jacinto MD ENDOSCOPY PROCEDURES Final R esult from Last 3 Months or Most Recently Relevant to Health Maintenance Insurance MEDICARE FOR LIFE MEDICARE FOR LIFE MEDICARE FOR LIFE Advance Directives For more information, please contact: [phone] * Full Code (Latest Code Status on [...] 8:55 AM 06/10/2020 1:51 PM Care Teams Program Director Scouting Relationship Specialty Start Date End Date Stantno Montoya MD [address] [place] [address] PCP - General Family Medicine 12/13/18 Livan Hough MD [address] [place] [address] Radiation Oncologist Radiation Oncology 01/10/19 Robert Jacinto MD [address] [place] [address] Surgeon Colon and Rectal Surgery 01/10/19 Arnav Mckeon MD [address] [place] [address] Medical Oncology 02/13/24
== END 2025-08-26 13:11 | disposition home or self-care (01) ==
PROVIDERS: PCP Family Medicine; Visit Provider Physician Assistant Medical
DX: R10.A1 Flank pain, right side (principal)
CPT/HCPCS: 72100; 74018

== ENCOUNTER 2025-08-31 14:23 | Outpatient (CLI) | payer MEDICARE, OTHER, SELFPAY ==
[2025-08-31 15:12] LABS: Influenza A QL RT-PCR Negative (Negative); Influenza B QL RT-PCR Negative (Negative); SARS-CoV-2 RNA PCR Negative (Negative)
--- OUTSIDE RECORDS SUMMARY | 2025-08-31 15:23 | XMS_ITS | Clinical Summary ---
Author Organization [facility] [address] [facility] Address [address] [place] [address] Care Team Providers Care Housing Director Name Role Phone Unavailable Primary Care Provider [...]
--- OUTSIDE RECORDS SUMMARY | 2025-08-31 15:23 | XMS_ITS | Encounter Summary ---
Author Organization [facility] Address [address] 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
--- OUTSIDE RECORDS SUMMARY | 2025-08-31 15:23 | XMS_ITS | Encounter Summary ---
Author Organization [facility] Address [address] [place] [address] Care Team Providers Care Professor Of Sport Management Name Role Phone Stanton Montoya MD Primary Care Provider [phone] Encounter Details Date Type Department Care Team (Latest Contact Info) Description 08/14/[address] [facility] Medical Group Multispecialty Care - [address], [address] [place] [address] Leonides Luevano MD [address] [place], [place] [id number] NOTES from Aug Social History Tobacco Use [...] on filedocumented in this encounter Care Teams Professor Of Sport Management Relationship Specialty Start Date End Date Stanton Montoya MD [address] [place] [address] PCP - General FAMILY PRACTICE 03/23/23 documented as of this encounter
--- OUTSIDE RECORDS SUMMARY | 2025-08-31 15:23 | XMS_ITS | Encounter Summary ---
Author Organization 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 on file Not [...] on filedocumented in this encounter Care Teams Case Fitter Relationship Specialty Start Date End Date Stanton Montoya MD [address] [facility] [address] [address] PCP - General Family Medicine 12/13/18 Livan Hough MD [address] [address] Radiation Oncologist Radiation Oncology 01/10/19 Robert Jacinto MD [address] [facility] [address] [address] Surgeon Colon and Rectal Surgery 01/10/19 Mendy Altamirano MD [address] [facility] [address] [address] Medical Oncologist/Timber Repairer Medical Oncology 09/02/19 02/12/24 Arnav Mckeon MD [address] [address] Medical Oncology 02/13/24 documented as of this encounter
--- OUTSIDE RECORDS SUMMARY | 2025-08-31 15:23 | XMS_ITS | Clinical Summary ---
Author Organization [facility] [address] Address [address] [place] [address] Care Team Providers Care Rotating Equipment Specialist Name Role Phone Stanton Montoya MD Primary Care Provider Livan Hough MD Unavailable Robert Jacinto MD Unavailable [phone] Arnav Mckeon MD Unavailable [phone] Allergies No known active allergies Medications aspirin 81 mg enteric coated tablet Take 1 tablet (81 mg total) by mouth daily 90 tablet 3 03/08/2021 Active FreeStyle Lite Strips strip 06/07/2022 Active atorvastatin (LIPITOR) 40 mg tablet Take 1 tablet (40 mg total) by mouth daily 90 tablet 3 06/19/2022 9 Active FreeStyle [place] Lite kit 07/03/2022 Ac tive Jardiance 25 [...] cancer 09/15/2021 Coronary artery disease invo lving [place] coronary artery of [place] heart without angina pectoris 06/21/2021 Mixed hyperlipidemia 06/21/2021 Primary hypertension 06/21/2021 Gilbert's syndrome 04/14/2021 Angina pectoris 11/05/2020 Abnormal cardiovascular stress test 11/05/2020 Overview (11/05/2020): Added automatically from request for surgery [id number] Screening for malignant neoplasm 05/20/2020 Overview (05/20/2020): Added automatically from request for surgery [id number] 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 Rectal cancer 12/31/2018 Cancer Staging:Clinical stage from 12/25/2018:Stage IIIB(cT3, cN1b, cM0) - Signed by Chau Nickerson MD on 01/13/2019 Resolved Problems Problem Noted Date Diagnosed Date Resolved Date Pulmonary nodule 04/14/2021 07/13/2021 Depression 05/26/2020 07/13/2021 Rectal pain 03/12/2019 05/26/2020 Other fatigue 02/26/2019 08/20/2024 Encounters Date Type Department Care Team Description 06/26/2025 Telephone [facility] Medical [facility] Cardiology [address] [place] [phone] Sreekanth Triana MD 06/25/2025 10:15 AM CDT Office Visit [facility] Medical [facility] Cardiology [address] [place] [phone] Sreekanth Triana MD Coronary artery disease involving [place] coronary artery of [place] heart without angina pectoris (Primary Dx); Mixed hyperlipidemia; Primary hypertension; Venous insufficiency from Last 3 Months Immunizations Immunization Administration Dates Next Due [place] (J&J) SARS-CoV-2 Vaccination 12/04/2020 Surgical History Surgery [...] on file Legal Sex Male 5:24 AM ALLERGIST Gender Identity Male 02/25/2021 5:21 PM CDT Sexual Orientation Straight 02/25/2021 5: 21 PM CDT 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 on file Not [...] Screening Discontinued Medical Devices Implanted Type Area Application Support Administrator Device Identifier Shelf Expiration Date Model / Serial / Lot Ang[employer] [id number] Xcela 8fr 1.6mm 1 Lumen Power Injectable Attach Catheter Fill - [id number] Implanted:Qty: 1 on 02/12/2019 at [facility] Catheter [employer] 08/25/2023 [id number] / / [id number] [employer] Isaura [id number] Synergy 3.5mm 24mm 144cm Radiopaque 1 Access Port Inflation Lumen - S0 - [id number] Implanted:Qty: 1 on 11/10/2020 by Sreekanth Triana MD at [facility] [id number] 07/22/2022 [id number] / 0 / [id number] Description:LAD Procedures Procedure Name Priority Date/Time Associated Diagnosis Comments COLONOSCOPY 03/12/2025 9:51 AM CDT from Last 3 Months or Most Recently Relevant to Health Maintenance Results * Colonoscopy (03/12/2025 9:51 AM CDT) Anatomical Region Laterality Modality Other Narrative Procedure Note Robert Jacinto MD - 03/12/2025 9:51 AM CDT [facility] Patient Name: Weston Fernandes Procedure Date: 03/12/2025 9:51 AM Date of : 1950 Admit Type: Outpatient Age: 74 Gender: Male Attending MD: Robert Jacinto M.D. Room: [facility] ENDOSCOPY ROOM 02 Note Status: Finalized Procedure: [...] The scope was passed under direct vision.The [id number] was introduced through the anusand advanced to [...] On: 03/12/2025 9:51 AM Recognized by the [employer] for promoting quality in endoscopy Robert Jacinto MD ENDOSCOPY PROCEDURES Final R esult from Last 3 Months or Most Recently Relevant to Health Maintenance Insurance MEDICARE FOR LIFE MEDICARE FOR LIFE MEDICARE FOR LIFE Advance Directives For more information, please contact: [phone] * Full Code (Latest Code Status on [...] 8:55 AM 06/10/2020 1:51 PM Care Teams Rotating Equipment Specialist Relationship Specialty Start Date End Date Stanton Montoya MD [address] [place] [address] PCP - General Family Medicine 12/13/18 Livan Hough MD [address] [place] [address] Radiation Oncologist Radiation Oncology 01/10/19 Robert Jacinto MD [address] [place] [address] Surgeon Colon and Rectal Surgery 01/10/19 Arnav Mckeon MD [address] [place] [address] Medical Oncology 02/13/24
--- OUTSIDE RECORDS SUMMARY | 2025-08-31 15:23 | XMS_ITS | Encounter Summary ---
Author Organization [facility] Address [address] [place] [address] Phone Care Team Providers Care Electrotherapist Name Role Phone Stanton Motnoya MD Primary Care Provider Yariel Chavez MD Unavailable [phone] Livan Hough MD Unavailable [phone] Robert Jacinto MD Unavailable Mendy Altamirano MD Unavailable Arnav Mckeon MD Unavailable [phone] Encounter Details Date Type Department Care Team (Latest Contact Info) Description 12/25/2018 Orders Only [facility] Scanning, Provider Social History Tobacco Use Types Packs/Day Years Used Date Smoking Tobacco: Never Sex and Gender Information Value Date Recorded Sex Assigned at Not on file 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 Gender Identity Male 02/25/2021 5:21 PM CDT [...] on filedocumented in this encounter Care Teams Electrotherapist Relationship Specialty Start Date End Date Stanton Montoya MD [address] [place] [address] PCP - General Family Medicine 12/13/18 Yariel Chavez MD [address] [place] [address] Referring Physician Gastroenterology 12/26/18 01/06/21 Livan Hough MD [address] [place] [address] Radiation Oncologist Radiation Oncology 01/10/19 Robert Jacinto MD [address] [place] [address] Surgeon Colon and Rectal Surgery 01/10/19 Mendy Altamirano MD [address] [place] [address] Medical Oncologist/Hematologis t Medical Oncology 09/02/19 02/12/24 Arnav Mckeon MD [address] [place] [address] Medical Oncology 02/13/24 documented as of this encounter
--- OUTSIDE RECORDS SUMMARY | 2025-08-31 15:23 | XMS_ITS ---
Author Organization [facility] [address] Address [address] [place] [address] Care Team Providers Care Computer Terminal Operator Name Role Phone Stanton Montoya MD Primary Care Provider Livan Hough MD Unavailable [phone] Robert Jacinto MD Unavailable [phone] Arnav Mckeon MD Unavailable [phone] Active Problems Problem Noted Date Diagnosed Date Venous insufficiency 06/25/2025 History of colonic polyps 02/05/2025 Rectal abnormality 08/20/2024 STEPHANIE (obstructive sleep apnea) 06/24/2024 Fatty liver 08/22/2023 History of rectal cancer 09/15/2021 Coronary artery disease invo lving [place] coronary artery of [place] heart without angina pectoris 06/21/2021 Mixed hyperlipidemia 06/21/2021 Primary hypertension 06/21/2021 Gilbert's syndrome 04/14/2021 Angina pectoris 11/05/2020 Abnormal cardiovascular stress test 11/05/2020 Overview (11/05/2020): Added automatically from request for surgery [id number] Screening for malignant neoplasm 05/20/2020 Overview (05/20/2020): Added automatically from request for surgery [id number] 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 Rectal cancer 12/31/2018 Cancer [...]
--- OUTSIDE RECORDS SUMMARY | 2025-08-31 15:23 | XMS_ITS | Encounter Summary ---
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 Gender Identity Male 02/25/2021 5:21 PM CDT Sexual Orientation Straight 02/25/2021 5: 21 PM CDT 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 on file Not [...] on filedocumented in this encounter Care Teams Valet Parking Attendant Relationship Specialty Start Date End Date Stanton Montoya MD [address] [place] [address] PCP - General Family Medicine 12/13/18 Livna Hough MD [address] [place] [address] Radiation Oncologist Radiation Oncology 01/10/19 Robert Jacinto MD [address] [place] [address] Surgeon Colon and Rectal Surgery 01/10/19 Mendy Altamirano MD [address] [place] [address] Medical Oncologist/Log Buncher Medical Oncology 09/02/19 02/12/24 Anrav Mckeon MD [address] [place] [address] Medical Oncology 02/13/24 documented as of this encounter
--- OUTSIDE RECORDS SUMMARY | 2025-08-31 15:23 | XMS_ITS | Encounter Summary ---
Author Organization [facility] Address [address] [facility] 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
--- OUTSIDE RECORDS SUMMARY | 2025-08-31 15:23 | XMS_ITS | Encounter Summary ---
Author Organization [facility] Address [address] [place] [address] Care Team Providers Care Bulk Plant Agent Name Role Phone Stanton Montoya MD Primary Care Provider [phone] Encounter Details Date Type Department Care Team (Late st Contact Info) Description 11/22/2023 Medication Management [facility] [address] [place] [address] Harshil Abraham, DPLianna [address] [place] [phone] Social History Tobacco Use Types Packs/Day [...] on filedocumented in this encounter Care Teams Bulk Plant Agent Relationship Specialty Start Date End Date Stanton Montoya MD [address] [facility] [address] [place] [address] PCP - General FAMILY PRACTICE 03/23/23 documented as of this encounter
--- OUTSIDE RECORDS SUMMARY | 2025-08-31 15:23 | XMS_ITS | Clinical Summary ---
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 Abnormal cardiovascular stress test 11/05/2020 Overview (09/17/2023): Added automatically from request for surgery [id number] Angina pectoris 11/05/2020 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 Family [...] Comments Blood Pressure 139/82 12/05/2023 2:45 PM ELECTRONIC ASSEMBLER Pulse 70 12/05/2023 2:45 PM ELECTRONIC ASSEMBLER Temperature 36.8 C (98.2 F) 09/17/2023 1:08 PM ELECTRONIC ASSEMBLER Respiratory Rate 18 08/17/2023 9:14 AM ELECTRONIC ASSEMBLER Oxygen Saturation 96% 12/05/2023 2:45 PM ELECTRONIC ASSEMBLER Inhaled Oxygen Concentration - - Weight 108.9 kg (240 lb) 12/05/2023 2:45 PM ELECTRONIC ASSEMBLER Height 188 cm (6' 2) 09/17/2023 1:08 PM ELECTRONIC ASSEMBLER Body Mass Index 30.81 09/17/2023 1:08 PM ELECTRONIC ASSEMBLER Plan of Treatment Health Maintenance Due Date [...] - 1-dose 75+ series) 2024 PHQ-2 (Physician [place]) 10/01/2024 08/17/2023 COVID-19 Vaccine (3 - 2024-2 [...] Recently Relevant to Health Maintenance Insurance MEDICARE [facility] [place] Care Teams Human Resources Recruiter Relationship Specialty Start Date End Date Stanton Montoya MD [address] [facility] [address] [place] [address] PCP - General FAMILY PRACTICE 03/23/23
--- OUTSIDE RECORDS SUMMARY | 2025-08-31 15:23 | XMS_ITS | Encounter Summary ---
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 Gender Identity Male 02/25/2021 5:21 PM CDT Sexual Orientation Straight 02/25/2021 5: 21 PM CDT 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 on file Not on file Not [...] on filedocumented in this encounter Care Teams Canoe Inspector Relationship Specialty Start Date End Date Stanton Montoya MD [address] [facility] [address] [address] PCP - General Family Medicine 12/13/18 Livan Hough MD [address] [address] Radiation Oncologist Radiation Oncology 01/10/19 Robert Jacinto MD [address] [facility] [address] [address] Surgeon Colon and Rectal Surgery 01/10/19 Mendy Altamirano MD [address] [facility] [address] [address] Medical Oncologist/Vocational Trainer Medical Oncology 09/02/19 02/12/24 Arnav Mckeon MD [address] [address] Medical Oncology 02/13/24 documented as of this encounter
== END 2025-08-31 14:24 | disposition home or self-care (01) ==
LOC: ANHLAB 14:24
PROVIDERS: PCP Family Medicine; Visit Provider Physician Assistant Medical
DX: J06.9 Acute upper respiratory infection, unspecified (principal); R05.9 Cough, unspecified; R52 Pain, unspecified; R09.81 Nasal congestion
CPT/HCPCS: 87636